=== PATIENT | male | born 1960 | race Caucasian/White ===

== ENCOUNTER → 2017-08-16 | Outpatient (CLI) | payer BC ==
[~2017-08-16] MED LIST: CETICHW4 PO; IBUP-1050 PO; TRIA1SPR2 NAE
--- NOTE | 2017-08-16 09:53 | DIAGNOSTIC IMAGING REPORT ---
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 No history of trauma. The patient has reportedly had this his entire life. FINDINGS: 4 views of the calvarium are obtained. No prior studies are available for comparison at the time of dictation. The skeletal structures are well mineralized. No calvarial fracture is seen. No bony abnormality is identified. The zygomatic arches are preserved. The paranasal sinuses and mastoid air cells are clear as visualized. IMPRESSION: Unremarkable radiographic evaluation of the calvarium. Electronically signed by: Luis Ferro M.D. 08/16/2017 9:51 AM Dictated Date/Time: 08/16/2017 9:49 AM
== END | disposition home or self-care (01) ==
LOC: C.RAD 08:34
PROVIDERS: ATTEND Family Medicine
DX: G93.9 Disorder of brain, unspecified (principal)

== ENCOUNTER 2017-10-18 06:31 | Observation (INO) | payer BC ==
[2017-10-17 08:37] VITALS: Ht 189.2 cm; Wt 102.0 kg
--- NOTE | 2017-10-17 13:39 | History and Physical ---
History & Physical Date Oct 17, 2017. Chief Complaint sleep apnea History of Present Illness The patient is a 57 year old male with complaints of sleep apnea, nasal obstruction Additional History Hepatic Disease: No Endocrine Disorder: No Kidney Disease: No Hypertension: Yes Heart Disease: No Bleeding Tendencies: No Infectious Diseases: No Allergies Coded Allergies: NO KNOWN DRUG ALLERGIES (Verified Allergy, Unknown, NKDA, 10/17/17) POLLEN (Verified Allergy, Unknown, HAYFEVER SYMPTOMS, 10/17/17) Home Medications Scheduled Fluticasone Propionate (Nasal) (Flonase Allergy Relief), 2 SPRAY ROHIT PRN Physical Examination Skin: warm/dry, no rash Eyes: normal inspection, EOMI, sclerae normal ENT: normal ENT inspection, pharynx normal Head: normocephalic, atraumatic Neck: supple, no adenopathy, trachea midline Respiratory/Chest: lungs clear, normal breath sounds, no respiratory distress Cardiovascular: regular rate, rhythm, no edema, no murmur Abdomen / GI: normal bowel sounds, non tender Back: normal inspection Extremities: normal inspection, normal range of motion Neurologic/Psych: no motor/sensory deficits, alert, normal reflexes, oriented x 3 Diagnosis sleep apnea, septal deviation Plan of Treatment septoplasty, Celon turbinates, tonsillectomy, uvulopalatopharyngoplasty
[2017-10-18] VITALS (8 sets, daily range): BP systolic 115–168; BP diastolic 71–90; PULSE 64–92; TEMP 36.1–36.9; O2SAT 90–99
[~2017-10-18] VITALS: Ht 189.2 cm; Wt 102.0 kg
[~2017-10-18 06:31] MED LIST changes: +CEFAZOLIN 2000MG IV PUSH 10 ML IV SCH; -CETICHW4 PO; +FLUT0.15 NAE; -IBUP-1050 PO; +LACTATED RINGER'S 1000ML 1,000 ML IV SCH; -TRIA1SPR2 NAE
--- NOTE | 2017-10-18 07:10 | History & Physical Bridge Note ---
H&P Re-Evaluation Bridge Note: I have examined the patient, reviewed the History & Physical and in the interval since the performance of the History & Physical I have noted the following changes of clinical significance: No changes noted
[2017-10-18] MEDS ORDERED: PROPOFOL IV EMULSION 10 MG/ML 20 ML VIAL IV ONE (07:47)
[2017-10-18] MEDS ORDERED: MIDAZOLAM HCL 1 MG/ML 2ML VIAL ONE (07:47)
[2017-10-18] MEDS ORDERED: LIDOCAINE HCL 2% 2 ML VIAL (20MG/ML) ONE (07:47)
[2017-10-18] MEDS ORDERED: SUCCINYLCHOLINE CHLORIDE 20 MG/ML 10 ML VIAL IV ONE (07:47)
[2017-10-18] MEDS ORDERED: FENTANYL CITRATE INJ 50 MCG/1 ML 2 ML VIAL ONE ×3 (07:48→10:50)
[2017-10-18] MEDS ORDERED: ACETAMINOPHEN 1000 MG/100 ML IV IV ONE (08:31)
[2017-10-18] MEDS ORDERED: FLUMAZENIL 0.1 MG/1 ML 10 ML VIAL IV PRN (09:15)
[2017-10-18] MEDS ORDERED: FENTANYL CITRATE INJ 50 MCG/1 ML 2 ML VIAL IV PRN (09:15)
[2017-10-18] MEDS ORDERED: EpHEDrine SULFATE INJ 50 MG/ML AMP IV PRN (09:15)
[2017-10-18] MEDS ORDERED: PROMETHAZINE HCL INJ 12.5 MG in SODIUM CHLORIDE 0.9% 50ML 50 ML IV PRN (09:15)
[2017-10-18] MEDS ORDERED: ATROPINE SULFATE 0.1 MG/ML 5ML SYR IV PRN (09:15)
[2017-10-18] MEDS ORDERED: NALOXONE HCL 0.4 MG/1 ML VIAL/CARP IV PRN (09:15)
[2017-10-18] MEDS ORDERED: ONDANSETRON INJ 2 MG/ML 2 ML VIAL IV PRN ×2 (09:15→11:00)
[2017-10-18] MEDS ORDERED: LABETALOL HCL IV 5 MG/ML 20ML IV PRN (09:15)
[2017-10-18] MEDS ORDERED: EpINEphrine INJ 1MG/ML AMP 1 MG/ML AMP ONE (09:33)
[2017-10-18] MEDS ORDERED: HYDROmorphone INJ 2 MG/ML SYR/VIAL ONE (09:33)
[2017-10-18] MEDS ORDERED: LABETALOL HCL IV 5 MG/ML 20ML IV ONE (09:48)
[2017-10-18] MEDS ORDERED: MUPIROCIN 2% OINT 22 GM TUBE ONE (09:48)
[2017-10-18] MEDS ORDERED: GELATIN SPONGE 12-7MM ONE (09:48)
[2017-10-18] MEDS ORDERED: EpINEphrine INJ 1MG/ML AMP 1 MG/ML AMP TOP ONE (09:53)
[2017-10-18] MEDS ORDERED: BUPIVACAINE/EPINEPHRINE 0.5% MPF 1:200,000 10 ML VIAL INJ ONE (09:53)
[2017-10-18] MEDS ORDERED: NEOSTIGMINE METHYLSULFATE 5 MG/5 ML SYR ONE (09:58)
[2017-10-18] MEDS ORDERED: GLYCOPYRROLATE INJ 0.2 MG/ML VIAL ONE (09:58)
[2017-10-18] MEDS ORDERED: EpHEDrine SULFATE 50MG/5ML SYR ONE (10:08)
[2017-10-18] MEDS ORDERED: HEMADERM ENT APPLICATOR KIT TOP ONE (10:57)
[2017-10-18] MEDS ORDERED: MoRPHine SULFATE 2 MG/ML CARP IV PRN (11:00)
[2017-10-18] MEDS ORDERED: ACETAMINOPHEN/HYDROCODONE ELIX 15 ML/CUP UDP PO PRN (11:00)
[2017-10-18] MEDS ORDERED: MoRPHine SULFATE 4 MG/ML 1 ML CARP\\VIAL IV PRN (11:00)
[2017-10-18] MEDS ORDERED: HydrALAZINE HCL 20 MG/ML VIAL ONE (11:07)
[2017-10-18] MEDS ORDERED: HydrALAZINE HCL 20 MG/ML VIAL IV. STA (11:08)
--- NOTE | 2017-10-18 11:24 | OPERATIVE REPORT ---
DATE OF OPERATION: 10/18/2017 PREOPERATIVE DIAGNOSES: Sleep apnea and septal deviation. POSTOPERATIVE DIAGNOSES: Same. PROCEDURE: Septoplasty with inferior turbinate reduction using radiofrequency volume reduction and tonsillectomy with uvulopalatopharyngoplasty. SURGEON: Dr. Myers. ANESTHESIA: General endotracheal. COMPLICATIONS: None. BLOOD LOSS: 100 mL HISTORY OF PRESENT ILLNESS: A 57-year-old gentleman with significant sleep apnea and inability to tolerate CPAP. He also has nasal obstruction. DESCRIPTION OF PROCEDURE: The patient brought to the operating room and placed in supine position. General endotracheal anesthesia was induced, prepped, draped in usual sterile manner. The nose was decongested using topical Xylocaine with epinephrine, injection of 0.5% Sensorcaine with 1:200,000 strength epinephrine was also used. The left hemitransfixion incision was made and mucoperichondrium was elevated off the left side of septum. Septal cartilage inferiorly from the vomer maxillary crest and a small septal spur projecting to the left was removed using the Ogle dissector. Superior inferior tunnels were elevated and then bilateral posterior tunnels were elevated. There was a large perpendicular plate of the ethmoid spur projecting to the left. This was removed via bilateral posterior tunnel using the [place]-Indira rongeurs, the Ignacia dissector and the Efrain forceps returning the septum to the midline. The septum was closed using continuous mattress suture of 4-0 plain gut. Radiofrequency volume reduction of the inferior turbinates were performed using the Ethertronicson machine creating 5 lesions in each inferior turbinate with the setting at 18. Gelfoam packing and Hemaderm packing was placed in the nose. Attention was turned to the pharynx. The mouth gag was placed. Soft palate was retracted using a red Lugo catheter. The peritonsillar area was injected with 0.5% Sensorcaine with 1:200,000 strength epinephrine. Tonsillectomy was performed using the plasma knife. Hemostasis was controlled using the plasma knife. The uvula was resected of its anterior portion along with a small piece of the soft palate. The flaps were delineated with a V cut into the palatoglossal fold and a flap cut into the palatopharyngeal fold, rotating this flap laterally into the V cut. All the mucosal edges were approximated using interrupted and continuous 2-0 chromic sutures. The uvula was sewn up on itself on to the soft palate. The pharynx was irrigated clean with saline. The patient tolerated the procedure well and was taken to the recovery area in satisfactory condition. I attest to the content of the Intraoperative Record and any orders documented therein. Any exception s are noted below.
--- NOTE | 2017-10-18 11:48 | Anesthesiology Progress Note ---
Anesthesia Post Op Note Date & Time Oct 18, 2017 at 11:47 Vital Signs Pain Intensity: 2 Vital Signs Past 12 Hours Date Time Temp Pulse Resp B/P (MAP) Pulse Ox O2 Delivery O2 Flow Rate FiO2 10/18/17 11:40 61 19 129/79 94 Free Flow/Blowby 6 10/18/17 11:30 36.4 71 14 143/88 96 Free Flow/Blowby 6 10/18/17 11:20 65 10 153/94 98 Mask 10 10/18/17 11:10 65 13 167/96 97 Mask 10 10/18/17 11:00 67 11 161/108 97 Mask 10 10/18/17 10:52 36.1 72 13 160/99 94 Oxymask 10 10/18/17 07:16 36.9 74 18 168/90 (116) 99 Room Air Notes Mental Status: alert / awake / arousable, participated in evaluation Pt Amnestic to Procedure: Yes Nausea / Vomiting: adequately controlled Pain: adequately controlled Airway Patency, RR, SpO2: stable & adequate BP & HR: stable & adequate Hydration State: stable & adequate Anesthetic Complications: no major complications apparent
[2017-10-18] MEDS ORDERED: IV FLUIDS COMPLETED PRN (12:30)
[2017-10-18] MEDS ORDERED: ACETAMINOPHEN IV 1000MG/100ML IV PRN (13:45)
[2017-10-18] MEDS ORDERED: NURSING VERBAL MED ORDER ONE (13:45)
[2017-10-18] MEDS ORDERED: COUGH DROP (SUGAR FREE) LOZ 24 LOZ/1 BOX ONE (14:53)
[2017-10-18] MEDS: DEXAMETHASONE INJ 6 MG in SYRINGE 0 ML IV SCH ×2 (16:27→20:11)
[2017-10-18] MEDS: D5W AND 1/2NSS + 20MEQ KCL 1,000 ML IV SCH (16:27)
[2017-10-18] MEDS: CEFAZOLIN IV 2,000 MG in SYRINGE 0 ML IV SCH ×2 (16:28→23:53)
[2017-10-18] MEDS: ACETAMINOPHEN/HYDROCODONE ELIX 15 ML/CUP UDP PO PRN ×2 (18:48→23:51)
[2017-10-19] MEDS: D5W AND 1/2NSS + 20MEQ KCL 1,000 ML IV SCH ×2 (02:02→08:44)
[2017-10-19] MEDS: DEXAMETHASONE INJ 6 MG in SYRINGE 0 ML IV SCH ×2 (02:03→07:20)
[2017-10-19 03:53] VITALS: BP 110/69; PULSE 90; TEMP 36.7; O2SAT 92
[2017-10-19] MEDS: ACETAMINOPHEN/HYDROCODONE ELIX 15 ML/CUP UDP PO PRN ×2 (05:51→11:20)
[2017-10-19 06:58] VITALS: BP 132/83; PULSE 77; TEMP 36.6; O2SAT 93
[2017-10-19] MEDS: CEFAZOLIN IV 2,000 MG in SYRINGE 0 ML IV SCH (09:18)
[2017-10-19] MEDS ORDERED: NURSING VERBAL MED ORDER ONE (09:30)
[2017-10-19] MEDS ORDERED: HYDR1SOL10 PO (09:36)
--- NOTE | 2017-10-19 09:37 | Discharge Instructions ---
Discharge Instructions Date of Service Oct 19, 2017. Admission Reason for Admission: Sleep Apnea, Septal Deviation Discharge Discharge Diagnosis / Problem: same Discharge Goals Goal(s): Improve function Activity Recommendations Activity Limitations: per Instructions/Follow-up section . Instructions / Follow-Up Instructions / Follow-Up ACTIVITY RECOMMENDATIONS: * During the first few days, activities should be limited. * Stay indoors for several days. * After 48 hours, activity can gradually be increased to normal activity. RETURN TO SCHOOL/WORK: * Return to school or work in one week. * No physical education for two weeks. OVER THE COUNTER MEDICATIONS: * You may use Tylenol * Avoid aspirin or aspirin containing products, e.g. as they may increase bleeding. SPECIAL CARE INSTRUCTIONS: * Avoid coughing or clearing the throat. * Do not use a straw. * A sore throat is expected frequently accompanied by pain radiating to the ears. This is normal. * Expect bad breath until "scabs" are healed. * Notify the doctor if bleeding occurs, vomiting, temperature greater than 101 degrees Fahrenheit. Call or cell phone: . * If bleeding occurs, it is usually in the first 24 hours or after the 5th day. If unable to reach the doctor, go to the nearest Emergency Department. Special Diet: * Fluids are very important and should be encouraged to maintain adequate hydration. * To maintain nutrition, eat soft foods and after 48 hours the consistency of foods can be increased. Examples are jello, soup, pasta, ice cream and mashed foods. FOLLOW UP VISIT: Follow-up visit with Dr. Myers in 2 weeks. Please call to schedule if not already scheduled. Current Hospital Diet Patient's current hospital diet: Regular Diet Discharge Diet Recommended Diet: Regular Diet Diet Texture: Mechanical Soft (ground) Procedures Procedures Performed: Septoplasty, Celon Turbinates, Tonsillectomy, Uvulopalatalpharyngoplasty Pending Studies Studies pending at discharge: no Medical Emergencies . Who to Call and When: Medical Emergencies: If at any time you feel your situation is an emergency, please call 911 immediately. . Non-Emergent Contact Non-Emergency issues call your: Primary Care Provider . "Provider Documentation" section prepared by Malena Myers. . VTE Core Measure Inpt VTE Proph given/why not?: SCD's [place] Drug Monitoring Program Search Results: no issues identified
[2017-10-19] MEDS ORDERED: SODIUM CHLORIDE 0.65% NA SOLN 45 ML (OCEAN) PRN (09:45)
--- NOTE | 2017-10-19 09:47 | DISCHARGE SUMMARY ---
DIAGNOSIS: Septal deviation and sleep apnea. DISCHARGE DIAGNOSIS: Septal deviation and sleep apnea. PROCEDURE: Septoplasty with radiofrequency volume reduction of the turbinates and tonsillectomy with uvulopalatopharyngoplasty. HOSPITAL COURSE: This 57-year-old male with significant sleep apnea was admitted for definitive treatment. He was taken to the operating room on 10/18/2017 where he underwent tonsillectomy with UPPP and also septoplasty with radiofrequency volume reduction of the turbinates. Postoperatively, he had pain and was admitted for observation overnight with monitoring and with IV medication for discomfort. He did well the first postoperative day with no significant bleeding with ability to swallow and eat full liquids. He is being discharged to home with prescription for hydrocodone elixir and also asked to return for followup in my office in 7-10 days. He was given a prescription for hydrocodone elixir.
[2017-10-19 10:11] VITALS: BP 132/83; PULSE 77; TEMP 36.6; O2SAT 93
== END 2017-10-19 12:28 | disposition home or self-care (01) ==
LOC: C.ACU 06:31 → C.MSN 10:59 → ENRESERV 11:38 → C.MSN 23:29
PROVIDERS: ADMIT Otolaryngology; ATTEND Otolaryngology
DX: J34.2 Deviated nasal septum (principal); G47.33 Obstructive sleep apnea (adult) (pediatric); I10 Essential (primary) hypertension; K21.9 Gastro-esophageal reflux disease without esophagitis

== ENCOUNTER 2020-07-10 22:30 | Inpatient (IN) ==
[2020-07-10 23:03] LABS: Basophils # (auto) 0.02 K/uL (0-0.2); Basophils % (auto) 0.2 %; Eosinophils # (auto) 0.01 K/uL (0-0.5); Eosinophils % (auto) 0.1 %; Hematocrit (blood only) 43.8 % (42-52); Hemoglobin 15.5 g/dL (14.0-18.0); Immature Granulocytes # (auto) 0.05 K/uL (0.00-0.02); Immature Granulocytes % (auto) 0.4 %; Lymphocytes % (auto) 6.2 %; Mean Corpuscular Hemoglobin 31.3 pg (25-34); Mean Corpuscular Hgb Conc 35.4 g/dL (32-36); Mean Corpuscular Volume 88.3 fL (80-100); Mean Platelet Volume 9.7 fL (7.4-10.4); Monocytes # (auto) 0.46 K/uL (0.11-0.59); Monocytes % (auto) 3.6 %; Neutrophils # (auto) 11.57 K/uL (1.4-6.5); Neutrophils % (auto) 89.5 %; Platelet Count 288 K/uL (130-400); RDW Standard Deviation 41.4 fL (36.4-46.3); Red Blood Count 4.96 M/uL (4.7-6.1); White Blood Count 12.91 K/uL (4.8-10.8)
[2020-07-10 23:10] LABS: Albumin Level 4.7 gm/dl (3.4-5.0); BUN Creatinine Ratio 13.7 (10-20); Calcium 10.5 mg/dl (8.5-10.1); Est GFR (African American) 52.7; Est GFR (Non-African American) 45.5; Magnesium 1.9 mg/dl (1.8-2.4); Potassium 4.1 mmol/L (3.5-5.1)
--- NOTE | 2020-07-10 23:15 | Emergency Department Note ---
History of Present Illness General Chief complaint: Cardiac Assessment History of Present Illness This 60-year-old presents to the ER complaining of cp Location: Chest Quality: Pressure Severity: Moderate Duration: Today Timing: Started while hiking Context: Symptoms persisted and patient came in Modifying factors: better with rest and aspirin; worse with activity Patient states he was walking down to the stream with his friend and got nauseated, diaphoretic, lightheaded and felt weak. He then sat down and felt slightly better. After a few hours him and his friend decided to go back and he developed chest pain while walking up the hill. His friend left him there to go get help. He took 2 aspirin and felt better. He did throw up a few times. Patient states he works out regularly and has no chest pain with this. No prior heart disease. There is a family history of heart disease. Patient states he feels back to normal now. He currently is on doxycycline for rosacea. Patient denies dyspnea, abdominal pain, fever, chills, flulike illness. Home Medications Home Medications Medication Instructions Recorded Confirmed Type ascorbic acid (vitamin C) [Vitamin 1,500 mg PO DAILY 05/25/20 07/10/20 History C] melatonin 10 mg PO HS 05/25/20 07/10/20 History multivit with min-folic acid 200 mcg PO DAILY 05/25/20 07/10/20 History [Adult One Daily Gummies] doxycycline hyclate 100 mg PO BID 07/10/20 07/10/20 History Allergies Allergy/AdvReac Type Severity Reaction Status Date / Time No Known Drug Allergies Allergy Unknown NKDA Verified 07/10/20 23:43 pollen extracts Allergy Unknown HAYFEVER Verified 07/10/20 23:43 SYMPTOMS Past Med/Surg History Medical History Sleep apnea Surgical History No pertinent past surgical history Social History Smoking Status: Never smoker Preferred Language: Bermudian Feels Safe at Home: Yes Review of Systems A total of 10 systems reviewed and were otherwise negative Physical Exam Vital Signs Vital Signs - 24 hr 07/10/20 22:35 07/10/20 22:40 07/10/20 23:08 Temperature 36.7 C Temperature Source Oral Pulse Rate 70 90 72 Pulse Rate from SpO2 Sensor 72 73 Respiratory Rate 21 20 21 Blood Pressure 172/106 H 172/106 H 151/82 H Blood Pressure Mean 129 128 95 Blood Pressure Position Sitting Pulse Oximetry 99 100 96 Oxygen Delivery Method Room Air Room Air Sepsis Recent Fever Within 48 Hours No Sepsis New/Unexplained Change in Mental Status No Sepsis Action Taken by Nursing No Action Required 07/10/20 23:21 Temperature Temperature Source Pulse Rate Pulse Rate from SpO2 Sensor Respiratory Rate Blood Pressure Blood Pressure Mean Blood Pressure Position Pulse Oximetry 98 Oxygen Delivery Method Room Air Sepsis Recent Fever Within 48 Hours Sepsis New/Unexplained Change in Mental Status Sepsis Action Taken by Nursing VITALS: Vitals are noted on the nurse's note and reviewed by myself. Vital signs stable. GENERAL: Pleasant talkative male, in no acute distress, nondiaphoretic, well- developed well-nourished. SKIN: Capillary reflex less than 2 seconds. HEENT: Normocephalic. PERRLA. EOMI. Nares patent. Mucous membranes moist. Neck is supple without nuchal rigidity. HEART: Regular rate and rhythm LUNGS: Clear to auscultation bilaterally without wheezes, rales or rhonchi. No retractions or accessory muscle use. ABDOMEN: Positive bowel sounds x 4. Normal tympanic percussion. Soft, nontender, without masses or organomegaly. Thompson sign negative. No guarding or rebound tenderness. MUSCULOSKELETAL: No gross musculoskeletal defects. NEURO: Patient was alert and oriented to person place and time. No focal neurological deficits. Critical Care Time Critical Care Time: Yes Total Critical Care Time: 35 I have personally spent 35 minutes of critical care time in the direct management of this patient. This includes bedside care, interpretation of diagnostic studies, and testing, discussion with consultants, patient, and [facility] members, and other required patient management activities. This 35 minutes is in excess of all separately billable procedures. Medical Decision Making Medical Records Attestation: I reviewed the patient's medical records. Home Medications Current Medication List: was personally reviewed by me Laboratory Data Attestation: I reviewed the patient's lab results. Result diagrams: 07/10/20 21:58 07/10/20 21:58 Lab Results 08/30/20 08/30/20 08/30/20 Range/Units 21:58 21:58 22:03 WBC 12.91 H (4.8-10.8) K/uL RBC 4.96 (4.7-6.1) M/uL Hgb 15.5 (14.0-18.0) g/dL Hct 43.8 (42-52) % MCV 88.3 (80-100) fL MCH 31.3 (25-34) pg MCHC 35.4 (32-36) g/dL RDW Std Deviation 41.4 (36.4-46.3) fL RDW Coeff of Yuniel 13.0 (11.5-14.5) % Plt Count 288 (130-400) K/uL MPV 9.7 (7.4-10.4) fL Immature Gran % (Auto) 0.4 % Neut % (Auto) 89.5 % Lymph % (Auto) 6.2 % [place] % (Auto) 3.6 % Eos % (Auto) 0.1 % Baso % (Auto) 0.2 % Neut # (Auto) 11.57 H (1.4-6.5) K/uL Lymph # (Auto) 0.80 L (1.2-3.4) K/uL [place] # (Auto) 0.46 (0.11-0.59) K/uL Eos # (Auto) 0.01 (0-0.5) K/uL Baso # (Auto) 0.02 (0-0.2) K/uL Immature Gran # (Auto) 0.05 H (0.00-0.02) K/uL PT (9.0-12.0) Seconds INR (0.9-1.1) APTT (21.0-31.0) Seconds PTT Ratio Sodium 143 (136-145) mmol/L Potassium 4.1 (3.5-5.1) mmol/L Chloride 107 (98-107) mmol/L Carbon Dioxide 24 (21-32) mmol/L Anion Gap 12.0 H (3-11) BUN 22 H (7-18) mg/dl Creatinine 1.61 H (0.6-1.4) mg/dl Est Cr Clr Drug Dosing 61.0 ml/min Est GFR ( Amer) 52.7 Est GFR (Non-Af Amer) 45.5 BUN/Creatinine Ratio 13.7 (10-20) Glucose 125 H (70-99) mg/dl Calcium 10.5 H (8.5-10.1) mg/dl Magnesium 1.9 (1.8-2.4) mg/dl Total Bilirubin 1.2 H (0.2-1) mg/dl AST 58 H (15-37) U/L ALT 23 (12-78) U/L Alkaline Phosphatase 80 (45-117) U/L Total Creatine Kinase 630 H (39-308) U/L Troponin I 9.000 H* (0-0.045) ng/ml Total Protein 8.2 (6.4-8.2) gm/dl Albumin 4.7 (3.4-5.0) gm/dl Globulin 3.5 (2.5-4.0) gm/dl Albumin/Globulin Ratio 1.3 (0.9-2) Lipase 61 L (73-393) U/L Urine Color Dark Yellow Urine Appearance Clear (Clear) Urine pH 5.0 (4.5-7.5) Ur Specific [place] 1.026 (1.000-1.030) Urine Protein Trace H (Negative) Urine Glucose (UA) Negative (Negative) Urine Ketones 3+ H (Negative) Urine Blood Negative (Negative) Urine Nitrite Negative (Negative) Urine Bilirubin Negative (Negative) Urine Urobilinogen Negative (Negative) Ur Leukocyte Esterase Negative (Negative) Urine WBC (Auto) 1-5 (0-5) /hpf Urine RBC (Auto) 0-4 (0-4) /hpf U Hyaline Cast (Auto) 10-30 H (0-5) /lpf U Epithel Cells (Auto) >30 H (0-5) /lpf Urine Bacteria (Auto) Negative (Negative) Urine Mucus Present A (None Prsent) 07/10/20 Range/Units 23:37 WBC (4.8-10.8) K/uL RBC (4.7-6.1) M/uL Hgb (14.0-18.0) g/dL Hct (42-52) % MCV (80-100) fL MCH (25-34) pg MCHC (32-36) g/dL RDW Std Deviation (36.4-46.3) fL RDW Coeff of Yuniel (11.5-14.5) % Plt Count (130-400) K/uL MPV (7.4-10.4) fL Immature Gran % (Auto) % Neut % (Auto) % Lymph % (Auto) % [place] % (Auto) % Eos % (Auto) % Baso % (Auto) % Neut # (Auto) (1.4-6.5) K/uL Lymph # (Auto) (1.2-3.4) K/uL [place] # (Auto) (0.11-0.59) K/uL Eos # (Auto) (0-0.5) K/uL Baso # (Auto) (0-0.2) K/uL Immature Gran # (Auto) (0.00-0.02) K/uL PT 11.2 (9.0-12.0) Seconds INR 1.1 (0.9-1.1) APTT 27.1 (21.0-31.0) Seconds PTT Ratio 1.0 Sodium (136-145) mmol/L Potassium (3.5-5.1) mmol/L Chloride (98-107) mmol/L Carbon Dioxide (21-32) mmol/L Anion Gap (3-11) BUN (7-18) mg/dl Creatinine (0.6-1.4) mg/dl Est Cr Clr Drug Dosing ml/min Est GFR ( Amer) Est GFR (Non-Af Amer) BUN/Creatinine Ratio (10-20) Glucose (70-99) mg/dl Calcium (8.5-10.1) mg/dl Magnesium (1.8-2.4) mg/dl Total Bilirubin (0.2-1) mg/dl AST (15-37) U/L ALT (12-78) U/L Alkaline Phosphatase (45-117) U/L Total Creatine Kinase (39-308) U/L Troponin I (0-0.045) ng/ml Total Protein (6.4-8.2) gm/dl Albumin (3.4-5.0) gm/dl Globulin (2.5-4.0) gm/dl Albumin/Globulin Ratio (0.9-2) Lipase (73-393) U/L Urine Color Urine Appearance (Clear) Urine pH (4.5-7.5) Ur Specific [place] (1.000-1.030) Urine Protein (Negative) Urine Glucose (UA) (Negative) Urine Ketones (Negative) Urine Blood (Negative) Urine Nitrite (Negative) Urine Bilirubin (Negative) Urine Urobilinogen (Negative) Ur Leukocyte Esterase (Negative) Urine WBC (Auto) (0-5) /hpf Urine RBC (Auto) (0-4) /hpf U Hyaline Cast (Auto) (0-5) /lpf U Epithel Cells (Auto) (0-5) /lpf Urine Bacteria (Auto) (Negative) Urine Mucus (None Prsent) Imaging Data Attestation: I personally reviewed and interpreted this imaging study as follows: Blood Pressure Blood Pressure Findings: Elevated blood pressure Blood Pressure Disposition: elevated BP felt to be situational MDM Narrative Prior records/ancillary studies reviewed. Triage Nursing notes reviewed. Additional history obtained from EMS. The patient's history was concerning for chest pain. Differential diagnosis: Etiologies such as cardiac ischemia, aortic dissection, pulmonary embolism, pneumonia, pneumothorax, musculoskeletal, infections, pericarditis, myocarditis, esophageal rupture, gastrointestinal, as well as others were entertained. Physical examination: As above. ER treatment provided: An order was placed for continuous cardiac monitoring. The monitor shows a rate of 60-100 with a sinus rhythm. Patient was observed On reassessment the patient felt better. Diagnostic interpretation by me: The electrocardiogram Q waves in the inferior leads. Poor baseline. Normal sinus, normal intervals, no acute ST-T wave changes. Impression normal sinus with Q waves in the inferior leads interpreted by myself EKG ordered for chest pain I think arrhythmia is unlikely. EKG shows normal sinus rhythm with no interval abnormalities such as QT prolongation or WPW. There are no findings to suggest Brugada syndrome. Cardiac monitoring in the emergency department reveals no tac hycardic or bradycardic dysrhythmia. Hypertrophic cardiomyopathy was considered but there are no clear historical elements pointing toward this. EKG is not suggestive. The QRS voltage is not extremely large. EKG was repeated as patient had elevated troponin EKG: Normal sinus, normal intervals, occasional PVC, persistent Q waves in the inferior leads. Impression normal sinus rhythm with PVC and Q waves in the inferior leads interpreted by myself. I think arrhythmia is unlikely. EKG shows normal sinus rhythm with no interval abnormalities such as QT prolongation or WPW. There are no findings to suggest Brugada syndrome. Cardiac monitoring in the emergency department reveals no tachycardic or bradycardic dysrhythmia. Hypertrophic cardiomyopathy was considered but there are no clear historical elements pointing toward this. EKG is not suggestive. The QRS voltage is not extremely large The labs revealed elevated troponin Elevated creatinine Imaging studies: Chest x-ray with no acute consolidation, pneumothorax or free air per my interpretation HEART SCORE: Hx: high/mod/low suspicion: 1 ECG: ST depression/nonspecific changes/normal: 1 Age: Greater than 65/45-64/less than 45: 1 Risk factors: (Hypertension, hyperlipidemia, diabetes, coronary disease, tobacco use, cocaine use): 1 Troponin: Greater than 2 times normal limits/1-2 times normal limits/normal: 2 Total: 6 Consultation: A consultation was placed with the hospitalist, Dr. Urrutia. The case was discussed and diagnostics were reviewed. The patient was evaluated in the ER for further treatment. Exam and history seem consistent with NSTEMI. Patient's creatinine is also elevated from baseline. Patient was consented verbally to heparin. Patient is agreement treatment plan of admission. Patient was pain-free throughout his stay in the ER. By the evaluation outlined above emergent etiologies such as aortic dissection, pulmonary embolism, pneumonia, pneumothorax, infections, pericarditis, myocarditis, gastrointestinal, as well as others were deemed relatively unlikely. The pt informed about the findings as listed above. All questions were answered and pleased with the treatment. The chart was completed utilizing [employer] Speech voice recognition software. Grammatical errors, random word insertions, pronoun errors, and incomplete sentences are an occassional consequence of this system due to software limitations, ambient noise, and hardware issues. Any formal questions or concerns about the content, text, or information contained within the body of this dictation should be directly addressed to the physician research assistant professor for clarification. Impression & Plan Acute non-ST elevation myocardial infarction (NSTEMI) Discharge Plan Visit Data Chief Complaint: Cardiac Assessment ED Provider: Arslan Ricks ED Midlevel Provider: Jeanne Reyes Discharge Problem: Acute non-ST elevation myocardial infarction (NSTEMI) Patient Disposition: Admitted As Inpatient Condition: Fair Forms Stand Alone Forms: [facility] Prescriptions Prescriptions: No Action doxycycline hyclate 100 mg capsule 100 mg PO BID RF: 0 ascorbic acid (vitamin C) [Vitamin C] 500 mg Tablet,Chewable 1,500 mg PO DAILY RF: 0 Adult One Daily Gummies 200 mcg Tablet,Chewable 200 mcg PO DAILY RF: 0 melatonin 10 mg Tablet 10 mg PO HS RF: 0 Referrals Referrals: Keith Rivera MD [Primary Care Provider] -
[2020-07-10 23:21] LABS: Albumin Globulin Ratio 1.3 (0.9-2); Bilirubin,Total 1.2 mg/dl (0.2-1); Globulin 3.5 gm/dl (2.5-4.0); Total Protein 8.2 gm/dl (6.4-8.2)
[2020-07-10 23:27] LABS: Appearance Urine Clear (Clear); Bacteria Urine Automated Negative (Negative); Blood Urine Negative (Negative); Color Urine Dark Yellow; Epithelial Cell Urine Auto >30 /lpf (0-5); Glucose Urine UA Negative (Negative); Ketones Urine 3+ (Negative); Leukocyte Esterase Urine Negative (Negative); Nitrite Urine Negative (Negative); Protein Urine Trace (Negative); RBC Urine Automated 0-4 /hpf (0-4); Specific Gravity Urine 1.026 (1.000-1.030); Urobilinogen Urine Negative (Negative)
[2020-07-10 23:41] LABS: Bilirubin Urine Negative (Negative); Ictotest Urine Negative (Negative)
[2020-07-10 23:42] LABS: Mucus Urine Present (None Prsent)
[2020-07-10] MEDS ORDERED: HEPARIN SODIUM/DEXTROSE 25,000 UNITS/500 ML BAG IV SCH (23:45)
[2020-07-10] MEDS ORDERED: SODIUM CHLORIDE 0.9% 1000ML 500 ML IV ONE (23:52)
[2020-07-10 23:55] LABS: INR 1.1 (0.9-1.1); Partial Thromboplastin Time 27.1 Seconds (21.0-31.0); Prothrombin Time 11.2 Seconds (9.0-12.0)
[2020-07-11] MEDS ORDERED: Heparin BOLUS **ED Use Only IV STA (00:29)
--- NOTE | 2020-07-11 01:49 | History & Physical Report ---
Date of Service July 11, 2020 Assessment & Plan (1) Acute non-ST elevation myocardial infarction (NSTEMI): Payam Sanabria is a 60 y/o male relatively healthy who presented with Chest Pain. He was found to be a NSTEMI with initial trop of 9.0. - Trop of 9 is significant, will trend, no chest pain currently. Will continue to trend. - ECG PRN chest pain - Cardiac Monitoring - did have a very small run of Vtach in room that was asymptomatic. - Will give Metoprolol Tartrate 25mg PO to protect against life threatening arrhythmias. - Lipitor 40mg PO started - Cardiology consulted. - Electrolytes WNL, K 4.1, Mag WNL. - Relatively healthy, no significant risk factors, will check for any underlying causes like DM with Hgb A1C and Lipid Panel ordered. He also is very actively physically and exercises every other day with cardio and has not had any chest pain with exercise. - ASA 81mg PO ordered. - Heparin IV was started in the ED and will continue. DVT ppx: On Heparin Code: Full FENGI: NPO, NSS @ 120ml/hr x 1 bag Dipso: Full admit/PCU/tele (2) Rosacea: Will hold Doxycycline for the time being. Education provided on to drink with full glass of water to prevent esophagitis. History of Present Illness Chief Complaint: Chest Pain Primary Care Provider: Keith Rivera MD Mr. Payam Sanabria is a 60 y/o male with past medical hx of Rosacea who presented to [facility] for Chest Pain. He notes that he hiked about 2 miles with about 25 pounds of gear for camping/fishing trip. He states that he was struggling on the walk and generally didn't feel well. He notes that he had onset of chest pain with nausea and numerous bouts of vomiting, diaphoresis, lightheadedness. He states that this was around 2pm. He notes that he was able to get ASA x2 from a passerby around 3:30pm that resolved chest pain. He noted chest pain was located to left side and felt like ache. It did not radiate. He did not have any shortness of breath. He has not had any chest pain since. He notes he had poor PO intake of fluids and felt dehydrated today when he was walking. He also notes he quickly took his Doxycycline around 12:30pm without a full glass of water. He takes this for his rosacea. He notes he had similar episode last month that he was seen at ED with a negative trop. He notes that his friend was able to walk back to get help, EMS arrived and he was able to walk out with them. He notes his vitals were normal taken by EMS in the field. He is a non-smoker, no DM, HTN that resolved with lifestyle modifications, no family hx of early cardiac , dad had a CABG but was older age. He is a non-smoker. He denies any rash outside of rosacea which he notes has worsened on his nose recently. He also is very actively physically and exercises every other day with cardio and has not had any chest pain with exercise. Allergies Allergy/AdvReac Type Severity Reaction Status Date / Time No Known Drug Allergies Allergy Unknown NKDA Verified 07/10/20 23:43 pollen extracts Allergy Unknown HAYFEVER Verified 07/10/20 23:43 SYMPTOMS Home Medications Home Medications Medication Instructions Recorded Confirmed Type ascorbic acid (vitamin C) [Vitamin 1,500 mg PO DAILY 05/25/20 07/10/20 History C] melatonin 10 mg PO HS 05/25/20 07/10/20 History multivit with min-folic acid 200 mcg PO DAILY 05/25/20 07/10/20 History [Adult One Daily Gummies] doxycycline hyclate 100 mg PO BID 07/10/20 07/10/20 History Past Med/Surg History Medical History Sleep apnea Surgical History No pertinent past surgical history Social History Smoking Status: Never smoker Second Hand Exposure: No; Do You Dip or Chew Tobacco: No; Hx Alcohol Use: Yes Alcohol type: beer and other Hx Substance Use: No Preferred Language: Cambodian Communication Ability: Effective Dispensary Clerk Required: No Beliefs That Will Affect Care: None Current Living Situation: Spouse Other Information That Helps Us Care for You: No Feels Safe at Home: Yes Safety Concerns: Feels Safe At This Time Review of Systems Review of Systems: All systems reviewed & are unremarkable except as noted in HPI & below Constitutional: no fever and no chills Eyes: no diplopia and no spots in vision Ear, Nose, Mouth, Throat: no nasal congestion, no nasal obstruction and no epistaxis Respiratory: no cough and no dyspnea Cardiovascular: as per Subjective / HPI; no syncope Gastrointestinal: as per Subjective / HPI; no abdominal pain Genitourinary: no dysuria and no urinary frequency Musculoskeletal: no back pain and no neck pain Integumentary: + acne; no urticaria Neurologic: no localized weakness, no numbness and no syncope Physical Exam Constitutional: WD/WN, vitals as above cooperative and comfortable Eyes: PERRL, conjunctivae normal, anicteric sclerae ENMT: external ear and nose normal, oropharynx normal Neck: normal visual inspection and trachea midline Respiratory: normal respiratory effort, lungs clear to auscultation Cardiovascular: RRR, no murmur, no edema pain not reproducible with palpation Gastrointestinal (Abdomen): Percussion/Palpation: abdomen soft; abdomen nontender, no guarding and abdomen not rigid Musculoskeletal: Head/Neck/Chest: normocephalic and head atraumatic Skin: erythema with closed comedome to nose consistent with Rosacea Results & Data Results & Data ([facility]) Vital Signs (Past 12 Hours) Vital Signs Temp Pulse Resp BP BP Pulse Ox 07/11/20 00:17 151/82 H 07/10/20 23:21 98 07/10/20 23:08 72 21 151/82 H 96 07/10/20 22:40 36.7 C 90 20 172/106 H 100 07/10/20 22:35 70 21 172/106 H 99 Laboratory Results Laboratory Results - last 24 hr 07/10/20 07/10/20 07/10/20 21:58 21:58 22:03 WBC 12.91 H RBC 4.96 Hgb 15.5 Hct 43.8 MCV 88.3 MCH 31.3 MCHC 35.4 RDW Std Deviation 41.4 RDW Coeff of Yuniel 13.0 Plt Count 288 MPV 9.7 Immature Gran % (Auto) 0.4 Neut % (Auto) 89.5 Lymph % (Auto) 6.2 White % (Auto) 3.6 Eos % (Auto) 0.1 Baso % (Auto) 0.2 Neut # (Auto) 11.57 H Lymph # (Auto) 0.80 L White # (Auto) 0.46 Eos # (Auto) 0.01 Baso # (Auto) 0.02 Immature Gran # (Auto) 0.05 H PT INR APTT PTT Ratio Sodium 143 Potassium 4.1 Chloride 107 Carbon Dioxide 24 Anion Gap 12.0 H BUN 22 H Creatinine 1.61 H Est Cr Clr Drug Dosing 61.0 Est GFR ( Amer) 52.7 Est GFR (Non-Af Amer) 45.5 BUN/Creatinine Ratio 13.7 Glucose 125 H Calcium 10.5 H Magnesium 1.9 Total Bilirubin 1.2 H AST 58 H ALT 23 Alkaline Phosphatase 80 Total Creatine Kinase 630 H Troponin I 9.000 H* Total Protein 8.2 Albumin 4.7 Globulin 3.5 Albumin/Globulin Ratio 1.3 Lipase 61 L Urine Color Dark Yellow Urine Appearance Clear Urine pH 5.0 Ur Specific [place] 1.026 Urine Protein Trace H Urine Glucose (UA) Negative Urine Ketones 3+ H Urine Blood Negative Urine Nitrite Negative Urine Bilirubin Negative Urine Urobilinogen Negative Ur Leukocyte Esterase Negative Urine WBC (Auto) 1-5 Urine RBC (Auto) 0-4 U Hyaline Cast (Auto) 10-30 H U Epithel Cells (Auto) >30 H Urine Bacteria (Auto) Negative Urine Mucus Present A 07/10/20 23:37 WBC RBC Hgb Hct MCV MCH MCHC RDW Std Deviation RDW Coeff of Yuniel Plt Count MPV Immature Gran % (Auto) Neut % (Auto) Lymph % (Auto) White % (Auto) Eos % (Auto) Baso % (Auto) Neut # (Auto) Lymph # (Auto) White # (Auto) Eos # (Auto) Baso # (Auto) Immature Gran # (Auto) PT 11.2 INR 1.1 APTT 27.1 PTT Ratio 1.0 Sodium Potassium Chloride Carbon Dioxide Anion Gap BUN Creatinine Est Cr Clr Drug Dosing Est GFR ( Amer) Est GFR (Non-Af Amer) BUN/Creatinine Ratio Glucose Calcium Magnesium Total Bilirubin AST ALT Alkaline Phosphatase Total Creatine Kinase Troponin I Total Protein Albumin Globulin Albumin/Globulin Ratio Lipase Urine Color Urine Appearance Urine pH Ur Specific [place] Urine Protein Urine Glucose (UA) Urine Ketones Urine Blood Urine Nitrite Urine Bilirubin Urine Urobilinogen Ur Leukocyte Esterase Urine WBC (Auto) Urine RBC (Auto) U Hyaline Cast (Auto) U Epithel Cells (Auto) Urine Bacteria (Auto) Urine Mucus Medications Administered Heparin Sodium/Dextrose (Heparin Sodium/Dextrose) 25,000 units in 500 mls @ 32 mls/hr IV .[id number] [facility]; Protocol Stop: 08/09/20 23:44 Last Admin: 07/11/20 00:35 Dose: 1,600 units/hr, 32 mls/hr Documented by: [id number] Cosigned by: [id number] Supervising Physician Co-Signing Physician Notes Patient seen and examined, chart reviewed, case discussed with Dr. Hanley and I agree with his assessment and plan as documented above. Briefly, patient is 5 tomorrow male presented with an NSTEMI On physical exam he is afebrile, hemodynamically stable, no acute distress Skinwarm, dry, intact, no rashes or lesions HEENTnormocephalic/atraumatic, pupils equal and reactive to light, mucous membranes, neck supple Heart+ S1, S2, regular, no murmur/rub/gallops Lungsclear to auscultation Abdomen+ bowel sounds, soft, nontender/nondistended Extremitieswarm, well-perfused, 2+ pulses, no edema Labs and images reviewed Assessment/plan: Admit to PCU Continue aspirin, statin, heparin drip Trend troponins 2D echo in the morning Cardiology consultation appreciated. Patient will be kept n.p.o. for possible catheterization Resident Activity Tracking Resident Involvement: Resident Care Provided Care Provided: Adult Hospital Medicine
[2020-07-11] MEDS ORDERED: SODIUM CHLORIDE 0.9% 1000ML 1,000 ML IV SCH ×2 (03:06→16:45)
[2020-07-11] MEDS ORDERED: NITROGLYCERIN SL 0.4 MG/TAB TAB SL PRN (03:06)
[2020-07-11] MEDS ORDERED: ONDANSETRON INJ 2 MG/ML 2 ML VIAL IV PRN (03:06)
[2020-07-11] MEDS ORDERED: METOPROLOL TARTRATE 25 MG TAB PO ONE (03:06)
[2020-07-11] MEDS ORDERED: ACETAMINOPHEN 325 MG TAB PO PRN (03:06)
[2020-07-11] MEDS: ATORVASTATIN 40 MG TAB PO SCH ×2 (03:47→19:50)
[2020-07-11] MEDS: ASPIRIN 81 MG ECTAB PO SCH ×2 (03:47→09:42)
[2020-07-11 04:52] LABS: Troponin I 42.7 ng/ml (0-0.045)
[2020-07-11] MEDS ORDERED: NITROGLYCERIN 2% OINTMENT 30GM TUBE EXT STA (05:43)
[2020-07-11] MEDS: FAMOTIDINE 20 MG in SYRINGE 3 ML IV ONE ×2 (06:15→09:41)
--- NOTE | 2020-07-11 06:40 | Billing Data ---
Date of Service July 11, 2020 Coding Level of Care Code 56206 Initial Inpt Care Lvl 2
[2020-07-11 07:06] LABS: Partial Thromboplastin Ratio 4.1
[2020-07-11 07:07] LABS: Partial Thromboplastin Time 115.6 Seconds (21.0-31.0)
[2020-07-11 07:11] LABS: Estimated Average Glucose 88 mg/dl; Hemoglobin A1C 4.7 % (4.5-5.6)
--- NOTE | 2020-07-11 07:42 | XRay Report ---
XR chest 1V portable CLINICAL HISTORY: Chest Pain COMPARISON STUDY: Chest radiograph May 25, 2020. FINDINGS: Lung volumes are normal. Minimal linear left basilar opacity suggests atelectasis. There is no pneumothorax or pleural effusion. Cardiac size is normal. Mediastinal contours are normal. There is no evidence for pulmonary edema. IMPRESSION: No acute cardiopulmonary findings. ACT 112: Negative or not required by law. Electronically signed by: Hank Garcia M.D. 07/11/2020 7:41 AM
--- NOTE | 2020-07-11 08:57 | XCELERA ---
[id number] \\[id number]
--- NOTE | 2020-07-11 09:02 | Cardiology Consultation ---
Date of Consultation July 11, 2020 Assessment & Plan (1) Acute non-ST elevation myocardial infarction (NSTEMI): (2) Acute renal insufficiency: ASSESSMENT/PLAN: 1. Acute NSTEMI: Presentation consistent with NSTEMI. We discussed the diagnosis. Continue aspirin 81 mg daily. Continue heparin drip. Continue high-intensity statin therapy. Had a dose of beta-rell this morning. If blood pressure and heart rate allow, would recommend metoprolol tartrate 12.5 mg twice daily. Recommend BULL-inhibitor now that creatinine has improved. Recommended cardiac catheterization. Risks and benefits of the procedure were discussed with he and his in detail. They were made aware that CT surgery is not available at this facility. They were agreeable to undergo cardiac catheterization and PCI, if deemed appropriate, at this facility. We also discussed cardiac rehabilitation. 2. Acute renal insufficiency: Likely due to hypovolemia following episodes of vomiting yesterday. Repeat basic metabolic panel was ordered and creatinine has normalized. 3. Disposition: Cardiology will continue to follow. Patient care has been communicated with Dr. Baker of the primary hospitalist service. Cardiac rehabilitation recommended on discharge. Highly complex medical issues. Thank you for allowing me to participate in the care of your patient. Please call for any other questions or concerns. Sincerely, Arya Benavides M.D. History of Present Illness Reason for Consultation: NSTEMI Requesting Physician: Dr. Moustapha Luis Attending Physician: Jose Bakre, History of Present Illness Mr. Sanabria is a pleasant 60-year-old gentleman with a history significant for sleep apnea (s/p surgery) who presented to [facility] on 07/10/2020 after experiencing an episode of chest discomfort earlier that afternoon. On presentation, his troponin was 9, later peaking at 42.7, and he was admitted to the hospitalist service. Cardiology was consulted to help assist in his care. Approximately 6 weeks ago, he had an episode of chest discomfort radiating to his left arm with nausea after exercise the. He was seen in the emergency department and later discharged home. He felt well in this regard until yesterday. He did a 2 mi hike down to a stream where he was planning on fishing for [employer]. He developed nausea, left-sided chest pressure, diaphoresis, and vomiting. He states that he was soaking wet from sweat. This first started shortly after 3:30 p.m. and lasted approximately 1 hour. His friend went to get EMS on foot. He then had another episode at rest lasting approximately 15 minutes, subsiding after aspirin 81 mg x 2. EMS arrived approximately 45 minutes later and recommended removal by helicopter however he chose to walk back to the road. He did so slowly and took several rests and did not have any further chest discomfort. While here, he received metoprolol and heparin drip. Overnight and early this morning, he did have 2 episodes of recurrent chest discomfort that resolved with nitroglycerin. These episodes were not nearly as severe as his initial presentation. He is currently chest pain-free. He denies syncope, near-syncope, shortness of breath, palpitations, edema, or bleeding such as melena, hematochezia, or h ematuria. He has not been diagnosed with dyslipidemia or diabetes. He had elevated blood pressure in the past but this normalized after exercising and losing weight. He exercises regularly at [employer] and enjoys riding bicycle. Review of systems: As above. Review of systems otherwise negative/unremarkable. Family history: Father diagnosed with CAD near the age of 71 and underwent PCI and CABG. Mother had VT in her 80s. Social history: Denies tobacco or drug abuse. Occasional alcohol. Lives at home with his , Jenna. They have a son and a daughter. Grandchildren. 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 His is present at the bedside. Allergies Allergy/AdvReac Type Severity Reaction Status Date / Time No Known Drug Allergies Allergy Unknown NKDA Verified 07/10/20 23:43 pollen extracts Allergy Unknown HAYFEVER Verified 07/10/20 23:43 SYMPTOMS Home Medications Home Medications Medication Instructions Recorded Confirmed Type ascorbic acid (vitamin C) [Vitamin 1,500 mg PO DAILY 05/25/20 07/10/20 History C] melatonin 10 mg PO HS 05/25/20 07/10/20 History multivit with min-folic acid 200 mcg PO DAILY 05/25/20 07/10/20 History [Adult One Daily Gummies] doxycycline hyclate 100 mg PO BID 07/10/20 07/10/20 History Patient History Medical History Sleep apnea Surgical History No pertinent past surgical history Social History Smoking Status: Never smoker Second Hand Exposure: No; Do You Dip or Chew Tobacco: No; Hx Alcohol Use: Yes Alcohol type: beer and other Hx Substance Use: No Preferred Language: Dutch Communication Ability: Effective 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 Alert and oriented. HEENT: Anicteric sclera. Neck: No JVD. No bruits. Normal carotid upstrokes bilaterally. Cardiac: PMI was nondisplaced. No ventricular heave. Regular. Normal S1-S2. No murmurs, rubs, or gallops. Pulmonary: Clear to auscultation bilaterally without wheezes, rales, or rhonchi. Abdomen: Soft, nontender, nondistended, with normoactive bowel sounds. No bruits noted. Extremities: 2+ radial pulses bilaterally. 2+ posterior tibialis pulses bilaterally. No edema or cyanosis. No palpable cords. Psychiatric: Affect appears appropriate. Results & Data ([facility]) Vital Signs (Past 12 Hours) Vital Signs Temp Pulse Pulse Resp BP BP Pulse Ox 07/11/20 07:21 36.8 C 58 L 17 117/73 96 07/11/20 05:37 53 L 124/74 07/11/20 04:16 85 07/11/20 03:16 36.8 C 74 18 152/88 H 95 07/11/20 02:51 86 18 151/82 H 96 07/11/20 00:17 151/82 H 07/10/20 23:21 98 07/10/20 23:08 72 21 151/82 H 96 07/10/20 22:40 36.7 C 90 20 172/106 H 100 07/10/20 22:35 70 21 172/106 H 99 Laboratory Results Laboratory Results - last 24 hr 07/10/20 07/10/20 07/10/20 21:58 21:58 22:03 WBC 12.91 H RBC 4.96 Hgb 15.5 Hct 43.8 MCV 88.3 MCH 31.3 MCHC 35.4 RDW Std Deviation 41.4 RDW Coeff of Yuniel 13.0 Plt Count 288 MPV 9.7 Immature Gran % (Auto) 0.4 Neut % (Auto) 89.5 Lymph % (Auto) 6.2 [place] % (Auto) 3.6 Eos % (Auto) 0.1 Baso % (Auto) 0.2 Neut # (Auto) 11.57 H Lymph # (Auto) 0.80 L [place] # (Auto) 0.46 Eos # (Auto) 0.01 Baso # (Auto) 0.02 Immature Gran # (Auto) 0.05 H PT INR APTT PTT Ratio Sodium 143 Potassium 4.1 Chloride 107 Carbon Dioxide 24 Anion Gap 12.0 H BUN 22 H Creatinine 1.61 H Est Cr Clr Drug Dosing 61.0 Est GFR ( Amer) 52.7 Est GFR (Non-Af Amer) 45.5 BUN/Creatinine Ratio 13.7 Glucose 125 H Estimat Average Glucose Hemoglobin A1c Calcium 10.5 H Magnesium 1.9 Total Bilirubin 1.2 H AST 58 H ALT 23 Alkaline Phosphatase 80 Total Creatine Kinase 630 H Troponin I 9.000 H* Total Protein 8.2 Albumin 4.7 Globulin 3.5 Albumin/Globulin Ratio 1.3 Triglycerides Cholesterol LDL Cholesterol, Calc VLDL Cholesterol, Calc HDL Cholesterol Cholesterol/HDL Ratio Lipase 61 L Urine Color Dark Yellow Urine Appearance Clear Urine pH 5.0 Ur Specific [place] 1.026 Urine Protein Trace H Urine Glucose (UA) Negative Urine Ketones 3+ H Urine Blood Negative Urine Nitrite Negative Urine Bilirubin Negative Urine Urobilinogen Negative Ur Leukocyte Esterase Negative Urine WBC (Auto) 1-5 Urine RBC (Auto) 0-4 U Hyaline Cast (Auto) 10-30 H U Epithel Cells (Auto) >30 H Urine Bacteria (Auto) Negative Urine Mucus Present A 07/10/20 07/11/20 07/11/20 23:37 03:58 03:58 WBC RBC Hgb Hct MCV MCH MCHC RDW Std Deviation RDW Coeff of Yuniel Plt Count MPV Immature Gran % (Auto) Neut % (Auto) Lymph % (Auto) [place] % (Auto) Eos % (Auto) Baso % (Auto) Neut # (Auto) Lymph # (Auto) [place] # (Auto) Eos # (Auto) Baso # (Auto) Immature Gran # (Auto) PT 11.2 INR 1.1 APTT 27.1 PTT Ratio 1.0 Sodium Potassium Chloride Carbon Dioxide Anion Gap BUN Creatinine Est Cr Clr Drug Dosing Est GFR ( Amer) Est GFR (Non-Af Amer) BUN/Creatinine Ratio Glucose Estimat Average Glucose 88 Hemoglobin A1c 4.7 Calcium Magnesium Total Bilirubin AST ALT Alkaline Phosphatase Total Creatine Kinase 1419 H Troponin I 42.700 H* Total Protein Albumin Globulin Albumin/Globulin Ratio Triglycerides 65 Cholesterol 171 LDL Cholesterol, Calc 105 VLDL Cholesterol, Calc 13 HDL Cholesterol 53 Cholesterol/HDL Ratio 3 Lipase Urine Color Urine Appearance Urine pH Ur Specific [place] Urine Protein Urine Glucose (UA) Urine Ketones Urine Blood Urine Nitrite Urine Bilirubin Urine Urobilinogen Ur Leukocyte Esterase Urine WBC (Auto) Urine RBC (Auto) U Hyaline Cast (Auto) U Epithel Cells (Auto) Urine Bacteria (Auto) Urine Mucus 07/11/20 07/11/20 06:24 06:24 WBC RBC Hgb Hct MCV MCH MCHC RDW Std Deviation RDW Coeff of Yuniel Plt Count MPV Immature Gran % (Auto) Neut % (Auto) Lymph % (Auto) [place] % (Auto) Eos % (Auto) Baso % (Auto) Neut # (Auto) Lymph # (Auto) [place] # (Auto) Eos # (Auto) Baso # (Auto) Immature Gran # (Auto) PT INR APTT 115.6 H* PTT Ratio 4.1 Sodium Potassium Chloride Carbon Dioxide Anion Gap BUN Creatinine Est Cr Clr Drug Dosing Est GFR ( Amer) Est GFR (Non-Af Amer) BUN/Creatinine Ratio Glucose Estimat Average Glucose Hemoglobin A1c Calcium Magnesium Total Bilirubin AST ALT Alkaline Phosphatase Total Creatine Kinase Troponin I 39.600 H* Total Protein Albumin Globulin Albumin/Globulin Ratio Triglycerides Cholesterol LDL Cholesterol, Calc VLDL Cholesterol, Calc HDL Cholesterol Cholesterol/HDL Ratio Lipase Urine Color Urine Appearance Urine pH Ur Specific [place] Urine Protein Urine Glucose (UA) Urine Ketones Urine Blood Urine Nitrite Urine Bilirubin Urine Urobilinogen Ur Leukocyte Esterase Urine WBC (Auto) Urine RBC (Auto) U Hyaline Cast (Auto) U Epithel Cells (Auto) Urine Bacteria (Auto) Urine Mucus Diagnostic Findings ECGs personally reviewed: ECG 07/10/2020 at 11:24 p.m.: Sinus rhythm with PVCs at 69 beats per minute. Inferior infarct. ECG 07/10/2020 at 10:37 p.m.: Sinus rhythm 67 beats per minute. Possible inferior infarct. ECG 07/11/2020 at 5:22 a.m.: Sinus bradycardia 55 beats per minute. Inferior infarct. Echo 07/11/2020: Normal LV size, systolic function. EF 55-60%. Severe hypokinesis to akinesis of the mid inferolateral wall. Mild hypokinesis of the mid to distal inferior wall. Mild LVH. Mild left atrial dilation. No significant valvular abnormalities. Normal RVSP. Chest x-ray 07/10/2020: No acute abnormality. Telemetry personally reviewed: No arrhythmia. Sinus rhythm. Medications Administered Current Inpatient Medications Acetaminophen (Acetaminophen 325 Mg Tab) 650 mg PO Q4H PRN PRN Reason: Pain or Fever Stop: 08/10/20 03:05 Aspirin (Aspirin 81 Mg Ectab) 81 mg PO QAM [facility] Stop: 08/10/20 03:05 Last Admin: 07/11/20 03:47 Dose: 81 mg Documented by: Atorvastatin Calcium (Atorvastatin 40 Mg Tab) 40 mg PO HS [facility] Stop: 08/10/20 03:05 Last Admin: 07/11/20 03:47 Dose: 40 mg Documented by: Heparin Sodium/Dextrose (Heparin Sodium/Dextrose) 25,000 units in 500 mls @ 32 mls/hr IV .[id number] [facility]; Protocol Stop: 08/09/20 23:44 Last Titration: 07/11/20 08:12 Dose: 1,350 units/hr, 27 mls/hr Documented by: Sodium Chloride (Nss 1000ml) 1,000 mls @ 120 mls/hr IV .[id number] [facility] Stop: 07/11/20 11:25 Last Admin: 07/11/20 03:58 Dose: 120 mls/hr Documented by: Nitroglycerin (Nitroglycerin Sl 0.4 Mg/Tab Tab) 0.4 mg SL UD PRN PRN Reason: Chest Pain Stop: 08/10/20 03:05 Last Admin: 07/11/20 04:43 Dose: 0.4 mg Documented by: Ondansetron HCl (Ondansetron Inj 2 Mg/Ml 2 Ml Vial) 4 mg IV Q6H PRN PRN Reason: Nausea Stop: 08/10/20 03:05 PG Care Time/CCT Total # of Minutes Spent Total Time Spent with Patient: Total time spent is greater than 50% in coordination of care (as documented) at patient's floor/unit and/or counseling patient: Coding Level of Care Code 28787 Inpt Consult Level 5 Diagnoses Acute non-ST elevation myocardial infarction (NSTEMI) I21.4 Acute renal insufficiency N28.9
[2020-07-11 10:20] LABS: BUN Creatinine Ratio 16.1 (10-20); Calcium 9.2 mg/dl (8.5-10.1); Creatinine Clr Calc Pharmacy 75.8 ml/min; Est GFR (Non-African American) 65.5; Potassium 3.4 mmol/L (3.5-5.1)
--- NOTE | 2020-07-11 12:24 | Pre Anesthesia Assessment ---
Date of Service July 11, 2020 Pre Sedation Assessment Vital Signs Temp Pulse Pulse Resp BP BP Pulse Ox 07/11/20 11:54 36.6 C 59 L 18 115/68 97 07/11/20 07:21 36.8 C 58 L 17 117/73 96 07/11/20 05:37 53 L 124/74 07/11/20 04:16 85 07/11/20 03:16 36.8 C 74 18 152/88 H 95 07/11/20 02:51 86 18 151/82 H 96 07/11/20 00:17 151/82 H 07/10/20 23:21 98 07/10/20 23:08 72 21 151/82 H 96 07/10/20 22:40 36.7 C 90 20 172/106 H 100 07/10/20 22:35 70 21 172/106 H 99 Cardiovascular RRR, no murmur, no edema Respiratory normal respiratory effort, lungs clear to auscultation Pre-Sedation Airway Assessment Smoking Status: Never smoker Mallampati Class: I ASA: ASA3 NPO Status Date of Last Intake of Fluids: 07/10/20 Time of Last Intake of Fluids: 22:00 Date of Last Intake of Solid Food: 07/10/20 Time of Last Intake of Solid Foods: 09:30 Procedure Planning Contraindications for Sedation: none Current Medications Reviewed: Yes Notes The planned sedation has been discussed with the patient. Informed Consent was obtained. I have identified the patient, determined the appropriateness of sedation and have assessed the patient immediately prior to the procedure. All medicine(s) and interventions are by my order.
[2020-07-11] MEDS ORDERED: NiCARDipine HCL INJ 2.5 MG/ML 10 ML AMP ONE (12:45)
[2020-07-11] MEDS ORDERED: NITROGLYCERIN/D5W 100MCG/ML 20ML SYR ONE (12:45)
[2020-07-11] MEDS ORDERED: MIDAZOLAM HCL 1 MG/ML 2ML VIAL ONE ×3 (12:45→14:12)
[2020-07-11] MEDS ORDERED: fentaNYL citrate 100 MCG/2 ML VIAL ONE ×2 (12:45→14:13)
[2020-07-11] MEDS ORDERED: HEPARIN (PORCINE) 1000 UNIT/ML 10 ML (CATH LAB USE ONLY) ONE ×2 (12:45→14:21)
--- NOTE | 2020-07-11 13:46 | Cardiac Catheterization ---
[facility] Data: Stoper Cardiac Status Clinical evaluation leading to the procedure CAD Presenation: Non STEMI Anginal Classification: CCS IV Heart Failure: No Cardiogenic Shock within 24 Hours: No Cardiac Arrest within 24 Hours: No Imaging Studies Past 6 Months: Yes Stress Studies Past 6 Months: No Standard Exercise Test: No Stress Echocardiogram: No Stress Testing w/SPECT MPI: No Cardiac CTA: No Coronary Anatomy Dominant: Right Left Ventricular Angiography EF (%): n/a Diagnostic Physicians Name: Jose Benavides MD Status: Elective Closure Device Percutaneous Entry Location: Radial Closure Device: Radial Band Recommendations: PCI without planned CABG Cardiac Cath Procedure Full Procedure Date July 11, 2020 Pre-Procedure Diagnosis Pre-Procedure Diagnosis: Non STEMI AUC Score AUC Score: 8 Post-Procedure Diagnosis Post-Procedure Diagnosis: Severe CAD and Normal Intracardiac Pressures Procedure(s) Performed Procedure(s) Performed: Coronary Angiography and Left Heart Cath Barbecue Cook Jose Benavides MD Spray I Painter(s) Kyung Estimated Blood Loss Estimated Blood Loss: < 25 ml Medication(s) Medication(s): Fentanyl, Heparin, Lidocaine 1%, Nicardipine and Versed Summary of Findings Procedures: 1. Coronary angiography 2. Left heart catheterization 3. Moderate sedation Coronary angiography: 1. Left main coronary artery: The LMCA is a large caliber vessel. No significant CAD. 2. Left anterior descending: The LAD is a large-caliber vessel. Proximal LAD diffuse 70% stenosis. Small D1 and D2. BEAR-3 flow throughout. 3. Circumflex: The circumflex is a large-caliber vessel. Ostial circumflex 30%. Mid circumflex 30%. Large caliber high OM1 with proximal 40%. Small OM 2. Large OM 3. 4. Right coronary artery: The RCA is large and dominant. Proximal RCA 30%. Mid RCA 80% with probable thrombus. Large PDA and PL branch. PL mid 20%. BEAR-3 flow throughout. Left heart catheterization: 1. Left ventriculography was not performed. 2. Normal LVEDP; 11 mmHg. 3. No aortic stenosis. Peak to peak gradient across aortic valve was 0 mmHg. Moderate sedation: 1. Sedation start time: 12:56 PM 2. Sedation end time: 1:26 PM Impression: 1. Severe CAD involving mid RCA (culprit vessel) with probable thrombus. 2. Severe CAD diffusely within the proximal LAD. 3. Otherwise, mild to moderate nonobstructive CAD. 4. Normal left-sided filling pressure. 5. No aortic stenosis. Plan: 1. Imaging reviewed with Dr. Maharaj of interventional cardiology. 2. PCI of RCA with consideration of IVUS/PCI of LAD. 3. Risk factor modification/optimize medical therapy. 4. Cardiac rehab. Hemodynamics Rest Ao:: 107/53 Final Ao: 99/53 LV: 113/0/11 Recommendations Recommendations: PCI without planned CABG Specimens Specimens: None Radiation Exposure (mGy) 1121 mGy. Fluoro time 3.9 min. Contrast (mls) 90 ml Procedural Complication(s) None Disposition remains in garden labourer for PCI I attest to the content of the Intraoperative Record and any orders documented therein. Any exceptions are noted below. [facility] Card Cath Procedure Codes Cardiac Catheterization Procedure 1: Cardiovascular Cath Procedures: 68245 Coronaries and LHC (+/-LV) Moderate Sedation Procedure 1: Sedation/Anesthesia: 60005 Mod Sedation by the same physician;Init15 Min Child Age 5 & Up Procedure 2: Sedation/Anesthesia: 38738 Mod Sedation by the same physician; Ea [id number] Minutes PG Care Time/CCT Total # of Minutes Spent Total Time Spent with Patient: Total time spent is greater than 50% in coordination of care (as documented) at patient's floor/unit and/or counseling patient:
[2020-07-11] MEDS ORDERED: TICAGRELOR 90 MG TAB PO ONE (14:51)
--- NOTE | 2020-07-11 15:02 | Post Anesthesia Assessment ---
Date of Service July 11, 2020 Post Sedation Assessment Vital Signs Temp Pulse Pulse Resp BP BP Pulse Ox 07/11/20 12:25 60 18 146/78 H 98 07/11/20 11:54 97.9 F 59 L 18 115/68 97 07/11/20 07:21 98.2 F 58 L 17 117/73 96 07/11/20 05:37 53 L 124/74 07/11/20 04:16 85 07/11/20 03:16 98.2 F 74 18 152/88 H 95 07/11/20 02:51 86 18 151/82 H 96 07/11/20 00:17 151/82 H 07/10/20 23:21 98 07/10/20 23:08 72 21 151/82 H 96 07/10/20 22:40 98.1 F 90 20 172/106 H 100 07/10/20 22:35 70 21 172/106 H 99 Recovery Score Activity: Moves 4 extremities Respiration: Deep Breath/Cough Circulation: +/-20% PreAnes Value Consciousness: Fully Awake Oxygen Saturation: O2 needed for >90% Discharge Sedation Level of Care: Fast Track Phase II Post Sedation Plan On clinical assessment, the patient appears to have tolerated the sedation without complications. Patient is recovering as anticipated. Patient will continue to be monitored by nursing and may be discharged when sedation discharge criteria are met per below protocol. Upon Completions of procedure up to 15 minutes continue every 5 minute vital signs and the P.A.R. score; then discharge to a Phase I or Fast Track to Phase II per the following guidelines: * Discharge Patient to appropriate Phase II area if PAR is 8 or greater or return to pre- procedure baseline. The post - procedure orders will be as directed. * If PAR score is less than 8 or not return to pre-procedure baseline then patient will follow Phase I monitoring till PAR is reached for Phase II. The Phase I may be done in procedure room or may call to secure a Phase I area. * If naloxone or flumazenil are used for reversal, hold in Phase I for continued monitoring from when last reversal dose was given for a minimum of 60 minutes or longer pending the nurse and/or physician discretion of patient condition before discharge to Phase II. Please call the Sedation Physician to re-evaluate and complete post-note for discharge to Phase II area. Do NOT discharge from procedure sedation or Phase 1 until post- sedation evaluation note is complete by procedure /sedation MD Sedation Discharge Instructions to be given to the patient at discharge to home.
--- NOTE | 2020-07-11 15:27 | Cardiac Catheterization ---
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 Car Operator Cardiac Status Clinical evaluation leading to the procedure CAD Presenation: Non STEMI Anginal Classification: CCS IV Heart Failure: No Cardiogenic Shock within 24 Hours: No Cardiac Arrest within 24 Hours: No Imaging Studies Past 6 Months: Yes Stress Studies Past 6 Months: No Diagnostic Physicians Name: Mahamed Maharaj MD Status: Elective Closure Device Percutaneous Entry Location: Radial Closure Device: Radial Band Recommendations: PCI without planned CABG PCI Indication: PCI for high risk Non-CHAN Lesion Segment Name: mid RCA Culprit Artery: Yes Stenosis Prior to Rx (%): 80 Chronic Total Occlusion: No IVUS: Yes FFR: No Pre-Procedure BEAR Flow: 3 Previously Treated Lesion: No Lesion Complexity: Non-High/Non-C Lesion Length (mm): 20 Thrombus Present: Yes Bifurcation Lesion: No Guidewire Across Lesion: Stenosis Post-Procedure (%): 0 Post-Procedure BEAR Flow: 3 Devices(s) Deployed: Yes Yes Lesion #2 Segment Name: proximal LAD Culprit Artery: No Stenosis Prior to Rx (%): 70 Chronic Total Occlusion: No IVUS: Yes FFR: No Pre-Procedure BEAR Flow: 3 Previously Treated Lesion: No Lesion Complexity: Non-High/Non-C Lesion Length (mm): 30 Thrombus Present: No Bifurcation Lesion: Yes Guidewire Across Lesion: Yes Stenosis Post-Procedure (%): 0 Post-Procedure BEAR Flow: 3 Devices(s) Deployed: Yes Intraprocedure Events Significant Disection: No Perforation: No Cardiac Cath Procedure Full Procedure Date July 11, 2020 Pre-Procedure Diagnosis Pre-Procedure Diagnosis: Non STEMI AUC Score AUC Score: 8 Post-Procedure Diagnosis Post-Procedure Diagnosis: Severe CAD and Successful PCI Procedure(s) Performed Procedure(s) Performed: Coronary Angiography, Drug Eluting Stent and Ultrasound Guided Vascular Access Development Consultant Mahamed Maharaj MD Claims Adjuster Supervisor(s) Kyung Estimated Blood Loss Estimated Blood Loss: < 25 ml Medication(s) Medication(s): Clopidogrel, Fentanyl, Heparin, Nicardipine, Nitroglycerin and Versed Summary of Findings Indication: High risk NSTEMI Access: 6 Fr slender right radial artery Findings: For full details of patient's coronary angiography please see cath report dictated by Dr. Benavides. Briefly, patient found to have severe multi-vessel disease including a 80% stenosis involving the mid RCA and diffuse proximal to mid LAD disease. Decision to proceed with PCI. -- PCI -- Antithrombotic therapy: Heparin, ticagrelor Procedure: RCA cannulated with JR4 guide Controller Mechanic 50 wire passed across lesion into distal vessel IVUS used to assess extent of disease, for vessel sizing. Noted to have mildly calcified diffuse disease involving the mid segment with probable thrombus. Measured stenosis of 83% with minimal luminal area of 2.9 mm. Dilated mid RCA lesion stented with 4.0 x 28 mm Xience Airam drug-eluting stent Stent post-dilated with 4.5 noncompliant balloon Repeat IVUS showed well apposed, well-expanded stent IC vasodilators administered for spasm Post procedure BEAR 3 flow, stent well expanded with minimal residual stenosis and no apparent cardiac complications. Left main cannulated with EBU 3.5 guide Controller Mechanic 50 wire placed into distal LAD IVUS of LAD revealed severe diffuse, moderately calcified disease extending from ostium to mid segment (calculated stenosis 79%, MLA 3.0 mm). BMW wire placed into high OM1 Proximal to mid LAD dilated with 3.0 compliant balloon Ostial to mid LAD stented with 3.5 x 33 mm Xience Airam drug-eluting stent Stent postdilated with 4.0 NC balloon Repeat IVUS showed well apposed, well-expanded stent. No evidence of edge com plications. IC vasodilators administered for spasm Post procedure BEAR 3 flow, stent well expanded with minimal residual stenosis and no apparent cardiac complications. Arterial Closure: TR band Summary: 1. Successful PCI of mid RCA with single drug-eluting stent (4.0 x 28 mm Xience Airam; postdilated with 4.5 NC). 2. Successful PCI of ostial to mid LAD with single drug-eluting stent (3.5 x 33 mm Xience Airam; postdilated with 4.0 NC). Recommendations: To PCU for continued monitoring Loaded with ticagrelor 180 mg in Transfer Car Operator Continue dual-antiplatelet therapy for at least 1 year Continue statin, and ASCVD risk factor modification Consult cardiac Rehab Hemodynamics Rest Ao:: 99/53/75 Final Ao: 124/66/92 LV: -- Recommendations Recommendations: PCI without planned CABG Specimens Specimens: None Radiation Exposure (mGy) 3802 Contrast (mls) 180 Fluids (cc crystalloids) Fluids (cc crystalloids): 140 Drains Drains: none Anesthesia moderate Procedural Complication(s) None Disposition PCU I attest to the content of the Intraoperative Record and any orders documented therein. Any exceptions are noted below. [facility] Card Cath Procedure Codes Therapeutic Services & Ancillary Proc Procedure 1: Cardiovascular Tx and Anc Procedures: 93879 IV Ultrasound (Coronary or Graft) Procedure 2: Cardiovascular Tx and Anc Procedures: 76221 IV Ultrasound Ea addl vessel Moderate Sedation Procedure 1: Sedation/Anesthesia: 38412 Mod Sedation by the same physician; Ea [id number] Minutes Stenting Procedure 1: Cardiovascular Stent Procedures: 98424 Perc transcatheter placement of intracoronary stent(s), with ang Procedure 2: Cardiovascular Stent Procedures: 49067 Ea addl branch of a major coronary artery PG Care Time/CCT Total # of Minutes Spent Total Time Spent with Patient: Total time spent is greater than 50% in coordination of care (as documented) at patient's floor/unit and/or counseling patient:
[2020-07-11] MEDS: METOPROLOL TARTRATE 25 MG TAB PO SCH (19:50)
[2020-07-12] MEDS: TICAGRELOR 90 MG TAB PO SCH ×3 (02:31→21:06)
--- NOTE | 2020-07-12 06:44 | Electrocardiogram Report ---
Test Reason : Blood Pressure : / mmHG Vent. Rate : 067 BPM Atrial Rate : 067 BPM P-R Int : 150 ms QRS Dur : 098 ms QT Int : 414 ms P-R-T Axes : 057 097 046 degrees QTc Int : 437 ms Poor data quality, interpretation may be adversely affected Normal sinus rhythm Rightward axis Probable Inferior infarct , age undetermined Abnormal ECG When compared with ECG of 25-MAY-2020 19:46, Minimal criteria for Inferior infarct are now Present Confirmed by Jose Benavides ([id number]) on 07/12/2020 6:44:45 AM Referred By: REFERRED SELF Confirmed By:Jose Benavides
--- NOTE | 2020-07-12 06:48 | Electrocardiogram Report ---
Test Reason : Blood Pressure : / mmHG Vent. Rate : 069 BPM Atrial Rate : 069 BPM P-R Int : 174 ms QRS Dur : 106 ms QT Int : 422 ms P-R-T Axes : 047 054 026 degrees QTc Int : 452 ms Poor data quality, interpretation may be adversely affected Sinus rhythm with occasional Premature ventricular complexes Inferior infarct (cited on or before 10-JUL-2020) Abnormal ECG When compared with ECG of 10-JUL-2020 22:37, Premature ventricular complexes are now Present Confirmed by Jose Benavides ([id number]) on 07/12/2020 6:47:34 AM Referred By: REFERRED SELF Confirmed By:Jose Benavides
--- NOTE | 2020-07-12 06:53 | Electrocardiogram Report ---
Test Reason : Blood Pressure : / mmHG Vent. Rate : 055 BPM Atrial Rate : 055 BPM P-R Int : 186 ms QRS Dur : 102 ms QT Int : 434 ms P-R-T Axes : 061 068 041 degrees QTc Int : 415 ms Sinus bradycardia Inferior infarct (cited on or before 10-JUL-2020) Abnormal ECG When compared with ECG of 10-JUL-2020 23:24, Premature ventricular complexes are no longer Present Confirmed by Jose Benavides ([id number]) on 07/12/2020 6:52:53 AM Referred By: REFERRED SELF Confirmed By:Jose Benavides
[2020-07-12 07:51] LABS: Basophils # (auto) 0.04 K/uL (0-0.2); Basophils % (auto) 0.4 %; Eosinophils % (auto) 1.1 %; Hematocrit (blood only) 37.4 % (42-52); Immature Granulocytes # (auto) 0.03 K/uL (0.00-0.02); Immature Granulocytes % (auto) 0.3 %; Lymphocytes # (auto) 1.48 K/uL (1.2-3.4); Lymphocytes % (auto) 16.3 %; Mean Corpuscular Hemoglobin 30.5 pg (25-34); Mean Corpuscular Hgb Conc 34.8 g/dL (32-36); Mean Corpuscular Volume 87.8 fL (80-100); Mean Platelet Volume 9.4 fL (7.4-10.4); Monocytes # (auto) 0.61 K/uL (0.11-0.59); Monocytes % (auto) 6.7 %; Neutrophils # (auto) 6.83 K/uL (1.4-6.5); Neutrophils % (auto) 75.2 %; Platelet Count 200 K/uL (130-400); RDW Standard Deviation 41.6 fL (36.4-46.3); Red Blood Count 4.26 M/uL (4.7-6.1); White Blood Count 9.09 K/uL (4.8-10.8)
[2020-07-12] MEDS: ASPIRIN 81 MG ECTAB PO SCH (07:58)
[2020-07-12] MEDS: lisinopriL 5 MG TAB PO SCH (07:58)
[2020-07-12] MEDS: METOPROLOL TARTRATE 25 MG TAB PO SCH ×2 (07:59→21:07)
[2020-07-12 08:37] LABS: Albumin Level 3.5 gm/dl (3.4-5.0); BUN Creatinine Ratio 17.3 (10-20); Calcium 8.9 mg/dl (8.5-10.1); Creatinine Clr Calc Pharmacy 85.1 ml/min; Est GFR (African American) 87.4; Est GFR (Non-African American) 75.4; Potassium 3.5 mmol/L (3.5-5.1)
[2020-07-12 08:43] LABS: Albumin Globulin Ratio 1.2 (0.9-2); Globulin 2.9 gm/dl (2.5-4.0); Total Protein 6.4 gm/dl (6.4-8.2)
--- NOTE | 2020-07-12 10:57 | Cardiology Progress Note ---
Date of Service July 12, 2020 Assessment & Plan (1) Acute non-ST elevation myocardial infarction (NSTEMI): (2) CAD (coronary artery disease): (3) S/P coronary artery stent placement: (4) Paroxysmal ventricular tachycardia: (5) Dyslipidemia: ASSESSMENT/PLAN: 1. NSTEMI: RCA was the culprit vessel and underwent PCI on 07/11/2020. Continue aspirin 81 mg daily indefinitely. Continue Brilinta for at least 1 year. This was discussed with him in detail. Continue low-dose beta-rell as tolerated. BULL-inhibitor initiated today. Continue high-intensity statin therapy. Cardiac rehabilitation on discharge. 2. CAD s/p RCA and LAD PCI: Underwent PCI yesterday. Feels well today. No further angina. Medical therapy as noted above. 3. Nonsustained ventricular tachycardia: 6 beat run of ventricular tachycardia last evening, which is not unexpected. Continue telemetry for a total of 48 hours. Beta-rell as tolerated. 4. Dyslipidemia: LDL elevated in the setting of CAD. Continue high-intensity statin therapy. 5. Disposition: Can be discharged tomorrow if no complications and can tolerate ambulation in the hallway. He was encouraged to ambulate the hallway later today. Will arrange for cardiology follow-up in the office. Cardiac rehab recommended. Patient care communicated with Dr. Baker of the primary hospitalist service. Admission and Anticipated Discharge Date Admission Date: July 11, 2020 Subjective He denies chest pain, shortness of breath, syncope, near-syncope, palpitations, edema, or bleeding from his right radial cath site. He has ambulated in his room without anginal symptoms. He is tolerating his diet. He was alone in his hospital room. Review of systems: As above. Physical Exam Physical Exam: Gen.: No acute distress. Alert and oriented. HEENT: Anicteric sclera. Neck: No JVD. Cardiac: Regular. Normal S1-S2. No murmurs, rubs, or gallops. Pulmonary: Clear to auscultation bilaterally without wheezes, rales, or rhonchi. Abdomen: Soft, nontender, nondistended, with normoactive bowel sounds. No bruits noted. Extremities: Right radial cath site is clean, dry, and intact without erythema or discharge. 2+ right radial pulse. No edema or cyanosis. Psychiatric: Affect appears appropriate. Results & Data ([facility]) Vital Signs (Past 12 Hours) Vital Signs Temp Pulse Pulse Resp BP Pulse Ox Pulse Ox 07/12/20 08:00 97 07/12/20 07:14 36.6 C 54 L 20 128/75 97 07/12/20 07:00 60 07/12/20 03:06 36.7 C 58 L 18 145/84 H 98 07/11/20 23:37 56 L 07/11/20 23:24 36.9 C 62 18 119/73 94 Laboratory Results Laboratory Results - last 24 hr 07/11/20 07/11/20 07/11/20 13:05 14:18 14:35 WBC RBC Hgb Hct MCV MCH MCHC RDW Std Deviation RDW Coeff of Yuniel Plt Count MPV Immature Gran % (Auto) Neut % (Auto) Lymph % (Auto) Sully % (Auto) Eos % (Auto) Baso % (Auto) Neut # (Auto) Lymph # (Auto) Sully # (Auto) Eos # (Auto) Baso # (Auto) Immature Gran # (Auto) Activ Coag Time Kaolin 147 H 208 H 241 H Sodium Potassium Chloride Carbon Dioxide Anion Gap BUN Creatinine Est Cr Clr Drug Dosing Est GFR ( Amer) Est GFR (Non-Af Amer) BUN/Creatinine Ratio Glucose Calcium Magnesium Total Bilirubin AST ALT Alkaline Phosphatase Troponin I Total Protein Albumin Globulin Albumin/Globulin Ratio 07/11/20 07/11/20 07/12/20 15:57 21:59 07:23 WBC 9.09 RBC 4.26 L Hgb 13.0 L Hct 37.4 L MCV 87.8 MCH 30.5 MCHC 34.8 RDW Std Deviation 41.6 RDW Coeff of Yuniel 13.0 Plt Count 200 MPV 9.4 Immature Gran % (Auto) 0.3 Neut % (Auto) 75.2 Lymph % (Auto) 16.3 Sully % (Auto) 6.7 Eos % (Auto) 1.1 Baso % (Auto) 0.4 Neut # (Auto) 6.83 H Lymph # (Auto) 1.48 Sully # (Auto) 0.61 H Eos # (Auto) 0.10 Baso # (Auto) 0.04 Immature Gran # (Auto) 0.03 H Activ Coag Time Kaolin Sodium Potassium Chloride Carbon Dioxide Anion Gap BUN Creatinine Est Cr Clr Drug Dosing Est GFR ( Amer) Est GFR (Non-Af Amer) BUN/Creatinine Ratio Glucose Calcium Magnesium Total Bilirubin AST ALT Alkaline Phosphatase Troponin I 30.000 H* 23.000 H* Total Protein Albumin Globulin Albumin/Globulin Ratio 07/12/20 07:23 WBC RBC Hgb Hct MCV MCH MCHC RDW Std Deviation RDW Coeff of Yuniel Plt Count MPV Immature Gran % (Auto) Neut % (Auto) Lymph % (Auto) Sully % (Auto) Eos % (Auto) Baso % (Auto) Neut # (Auto) Lymph # (Auto) Sully # (Auto) Eos # (Auto) Baso # (Auto) Immature Gran # (Auto) Activ Coag Time Kaolin Sodium 144 Potassium 3.5 Chloride 112 H Carbon Dioxide 23 Anion Gap 9.0 BUN 18 Creatinine 1.06 Est Cr Clr Drug Dosing 85.1 Est GFR ( Amer) 87.4 Est GFR (Non-Af Amer) 75.4 BUN/Creatinine Ratio 17.3 Glucose 94 Calcium 8.9 Magnesium 2.0 Total Bilirubin 1.0 AST 95 H ALT 32 Alkaline Phosphatase 62 Troponin I Total Protein 6.4 D Albumin 3.5 Globulin 2.9 Albumin/Globulin Ratio 1.2 Diagnostic Findings Telemetry personally reviewed: Sinus rhythm with 1 run of nonsustained ventricular tachycardia, 6 beats. ECG personally reviewed: ECG 07/12/2020: Sinus rhythm 62 beats per minute. Inferior infarct. Cardiac Cath 07/11/20: Coronary angiography: 1. Left main coronary artery: The LMCA is a large caliber vessel. No significant CAD. 2. Left anterior descending: The LAD is a large-caliber vessel. Proximal LAD diffuse 70% stenosis. Small D1 and D2. BEAR-3 flow throughout. 3. Circumflex: The circumflex is a large-caliber vessel. Ostial circumflex 30%. Mid circumflex 30%. Large caliber high OM1 with proximal 40%. Small OM 2. Large OM 3. 4. Right coronary artery: The RCA is large and dominant. Proximal RCA 30%. Mid RCA 80% with probable thrombus. Large PDA and PL branch. PL mid 20%. BEAR-3 flow throughout. Left heart catheterization: 1. Left ventriculography was not performed. 2. Normal LVEDP; 11 mmHg. 3. No aortic stenosis. Peak to peak gradient across aortic valve was 0 mmHg. PCI: 1. Successful PCI of mid RCA with single drug-eluting stent (4.0 x 28 mm Xience Airam; postdilated with 4.5 NC). 2. Successful PCI of ostial to mid LAD with single drug-eluting stent (3.5 x 33 mm Xience Airam; postdilated with 4.0 NC). PG Care Time/CCT Total # of Minutes Spent Total Time Spent with Patient: Total time spent is greater than 50% in coordination of care (as documented) at patient's floor/unit and/or counseling patient: Coding Level of Care Code 13285 Subseq Hosp Care Lvl 3 Diagnoses Acute non-ST elevation myocardial infarction (NSTEMI) I21.4 CAD (coronary artery disease) I25.10 S/P coronary artery stent placement Z95.5 Paroxysmal ventricular tachycardia I47.2 Dyslipidemia E78.5
[2020-07-12] MEDS: ATORVASTATIN 40 MG TAB PO SCH (21:06)
--- NOTE | 2020-07-12 21:55 | Hospitalist Progress Note ---
Date of Service July 12, 2020 Assessment & Plan (1) Acute non-ST elevation myocardial infarction (NSTEMI): troponin peaked > 40, had chest pain and pressure several hours prior to admission initially treated with aspirin, heparin drip left heart catheterization on 07/[address] Benavides and Dr. Maharaj, found to have severe CAD RCA culprit vessel but also with disease in LAD drug eluting stent placed in both vessels, no complications continue aspirin and Brilinta, DAPT for one year lisinopril 5mg and Lopressor 12.5mg BID Lipitor 40mg daily no chest pain, stable today echo with EF of 55% and akinesis of RCA distribution plan for d/c tomorrow, follow up with cardiac rehab, cardiology in two weeks (2) Rosacea: Admission and Anticipated Discharge Date Admission Date: July 11, 2020 Subjective patient doing well today, no chest pain or pressure vitals stable, he is tolerating low dose lisinopril and Lopressor discussed with Dr. Benavides, if he remains stable today he can go tomorrow AM updated his at the bedside reviewed labs, CBC normal, Cr is 1.0 after contrast yesterday Review of Systems Review of Systems: All systems reviewed & are unremarkable except as noted in Subjective Physical Exam Constitutional: WD/WN, vitals as above Eyes: PERRL, conjunctivae normal, anicteric sclerae ENMT: external ear and nose normal, oropharynx normal Neck: trachea midline, no thyromegaly Respiratory: normal respiratory effort, lungs clear to auscultation Cardiovascular: RRR, no murmur, no edema Gastrointestinal (Abdomen): normal bowel sounds, soft, nontender, no hepatosplenomegaly Musculoskeletal: no cyanosis or clubbing, extremities motor strength 5/5 Skin: no rashes, warm and dry Neurologic: patellar DTR's 2+ bilat, sensation intact and PERRL, EOMI, accommodation nl, no face palsy, no dysarthria Psychiatric: A+Ox3, euthymic affect Lymphatic: no cervical or axillary lymphadenopathy Results & Data Results & Data ([facility]) Vital Signs (Past 12 Hours) Vital Signs Temp Pulse Pulse Resp BP Pulse Ox 07/12/20 19:12 37.4 C 84 16 126/76 100 07/12/20 15:01 36.6 C 64 19 133/78 100 07/12/20 11:21 37.1 C 53 L 19 122/74 96 Laboratory Results Laboratory Results - last 24 hr 07/11/20 07/12/20 07/12/20 21:59 07:23 07:23 WBC 9.09 RBC 4.26 L Hgb 13.0 L Hct 37.4 L MCV 87.8 MCH 30.5 MCHC 34.8 RDW Std Deviation 41.6 RDW Coeff of Yuniel 13.0 Plt Count 200 MPV 9.4 Immature Gran % (Auto) 0.3 Neut % (Auto) 75.2 Lymph % (Auto) 16.3 [place] % (Auto) 6.7 Eos % (Auto) 1.1 Baso % (Auto) 0.4 Neut # (Auto) 6.83 H Lymph # (Auto) 1.48 [place] # (Auto) 0.61 H Eos # (Auto) 0.10 Baso # (Auto) 0.04 Immature Gran # (Auto) 0.03 H Sodium 144 Potassium 3.5 Chloride 112 H Carbon Dioxide 23 Anion Gap 9.0 BUN 18 Creatinine 1.06 Est Cr Clr Drug Dosing 85.1 Est GFR ( Amer) 87.4 Est GFR (Non-Af Amer) 75.4 BUN/Creatinine Ratio 17.3 Glucose 94 Calcium 8.9 Magnesium 2.0 Total Bilirubin 1.0 AST 95 H ALT 32 Alkaline Phosphatase 62 Troponin I 23.000 H* Total Protein 6.4 D Albumin 3.5 Globulin 2.9 Albumin/Globulin Ratio 1.2 Medications Administered Current Inpatient Medications Acetaminophen (Acetaminophen 325 Mg Tab) 650 mg PO Q4H PRN PRN Reason: Pain or Fever Stop: 08/10/20 03:05 Aspirin (Aspirin 81 Mg Ectab) [address] [facility] Stop: 08/10/20 03:05 Last Admin: 07/12/20 07:58 Dose: 81 mg Documented by: Atorvastatin Calcium (Atorvastatin 40 Mg Tab) 40 mg PO [facility] Stop: 08/10/20 03:05 Last Admin: 07/12/20 21:06 Dose: 40 mg Documented by: Lisinopril (Lisinopril 5 Mg Tab) [address] [facility] Stop: 08/11/20 08:59 Last Admin: 07/12/20 07:58 Dose: 5 mg Documented by: Metoprolol Tartrate (Metoprolol Tartrate 25 Mg Tab) 12.5 mg PO BID [facility] Stop: 08/10/20 20:59 Last Admin: 07/12/20 21:07 Dose: 12.5 mg Documented by: Nitroglycerin (Nitroglycerin Sl 0.4 Mg/Tab Tab) 0.4 mg SL UD PRN PRN Reason: Chest Pain Stop: 08/10/20 03:05 Last Admin: 07/11/20 04:43 Dose: 0.4 mg Documented by: Ondansetron HCl (Ondansetron Inj 2 Mg/Ml 2 Ml Vial) 4 mg IV Q6H PRN PRN Reason: Nausea Stop: 08/10/20 03:05 Ticagrelor (Ticagrelor 90 Mg Tab) 90 mg PO BID [facility] Stop: 08/11/20 02:38 Last Admin: 07/12/20 21:06 Dose: 90 mg Documented by: PG Care Time/CCT Total # of Minutes Spent Total Time Spent: 32 Total Time Spent with Patient: Total time spent is greater than 50% in coordination of care (as documented) at patient's floor/unit and/or counseling patient: discussed with Dr. Benavides discussed with patient's at the bedside, answered questions Coding Level of Care Code 49508 Subseq Hosp Care Lvl 3 Diagnoses Acute non-ST elevation myocardial infarction (NSTEMI) I21.4 Tee L71.9
--- NOTE | 2020-07-12 22:13 | Electrocardiogram Report ---
Test Reason : Blood Pressure : / mmHG Vent. Rate : 068 BPM Atrial Rate : 068 BPM P-R Int : 192 ms QRS Dur : 102 ms QT Int : 430 ms P-R-T Axes : 052 047 042 degrees QTc Int : 457 ms Poor data quality, interpretation may be adversely affected Normal sinus rhythm Low voltage QRS Inferior infarct (cited on or before 10-JUL-2020) Abnormal ECG When compared with ECG of 11-JUL-2020 05:22, No significant change was found Confirmed by Jose Benavides ([id number]) on 07/12/2020 10:13:15 PM Referred By: REFERRED SELF Confirmed By:Jose Benavides
--- NOTE | 2020-07-12 22:55 | Electrocardiogram Report ---
Test Reason : Blood Pressure : / mmHG Vent. Rate : 062 BPM Atrial Rate : 062 BPM P-R Int : 188 ms QRS Dur : 098 ms QT Int : 418 ms P-R-T Axes : 053 066 -11 degrees QTc Int : 424 ms Normal sinus rhythm Inferior infarct (cited on or before 10-JUL-2020) Abnormal ECG When compared with ECG of 11-JUL-2020 17:32, Inverted T waves have replaced nonspecific T wave abnormality in Inferior leads Confirmed by Jose Benavides ([id number]) on 07/12/2020 10:54:51 PM Referred By: REFERRED SELF Confirmed By:Jose Benavides
[2020-07-13 07:26] VITALS: TEMP 98.2; O2SAT 97
--- NOTE | 2020-07-13 08:17 | Cardiology Progress Note ---
Date of Service July 13, 2020 Assessment & Plan (1) Acute non-ST elevation myocardial infarction (NSTEMI): (2) CAD (coronary artery disease): (3) S/P coronary artery stent placement: (4) Paroxysmal ventricular tachycardia: (5) Dyslipidemia: ASSESSMENT/PLAN: 1. NSTEMI: RCA was the culprit vessel and underwent PCI on 07/11/2020. Continue aspirin 81 mg daily indefinitely. Continue Brilinta for at least 1 year. Continue low-dose beta-rell as tolerated. Continue BULL-inhibitor. Continue high-intensity statin therapy. Cardiac rehabilitation on discharge. 2. CAD s/p RCA and LAD PCI: Underwent PCI on 07/11/2020. No angina or heart failure symptoms. Medical therapy as noted above. 3. Nonsustained ventricular tachycardia: 6 beat run of ventricular tachycardia on 07/11/2020, without recurrent VT. Continue beta-rell. 4. Dyslipidemia: LDL elevated in the setting of CAD. Continue high-intensity statin therapy. 5. Disposition: It was recommended that he ambulate the hallway and if tolerated, could be discharged. Continue cardiac medications as noted. Follow- up has been arranged in the cardiology office with me next week. Cardiac rehabilitation ordered. Admission and Anticipated Discharge Date Admission Date: July 11, 2020 Subjective He was seen early this morning, at approximately 8:30 a.m.. He felt well this morning. He had not yet ambulated in the hallway but stated that he was quite active in his room. He has not had any further angina. He denies shortness of breath, syncope, near-syncope, palpitations, edema, or bleeding. He had several questions written down to discuss when I arrived this morning. These range from cardiac rehab, to coffee consumption, coronary artery plaque buildup, etc. These were answered to the best of my ability. We did discuss cardiac rehab in detail and benefits that they may offer him. He remained interested. He consumes approximately 8 oz of coffee per day and asked that was acceptable. It was confirmed that this is acceptable. We also once again discussed cardiac catheterization findings and stents that were placed. His presented to the bedside towards the ending of our visit today. Review of systems: As above. Physical Exam Physical Exam: Gen.: No acute distress. Alert and oriented. HEENT: Anicteric sclera. Neck: No JVD. Cardiac: Regular. Normal S1-S2. No murmurs, rubs, or gallops. Pulmonary: Clear to auscultation bilaterally without wheezes, rales, or rhonchi. Abdomen: Soft, nontender, nondistended, with normoactive bowel sounds. No bruits noted. Extremities: Right radial cath site remains clean, dry, and intact without erythema or discharge. 2+ right radial pulse. No edema or cyanosis. Psychiatric: Affect appears appropriate. Results & Data ([facility]) Vital Signs (Past 12 Hours) Vital Signs Temp Pulse Pulse Resp BP Pulse Ox 07/13/20 07:56 52 L 07/13/20 07:22 36.8 C 58 L 20 119/75 97 07/13/20 03:16 36.9 C 61 18 115/71 99 07/12/20 23:07 36.7 C 64 18 136/81 98 Laboratory Results Laboratory Results - last 24 hr 07/12/20 07:23 Sodium 144 Potassium 3.5 Chloride 112 H Carbon Dioxide 23 Anion Gap 9.0 BUN 18 Creatinine 1.06 Est Cr Clr Drug Dosing 85.1 Est GFR ( Amer) 87.4 Est GFR (Non-Af Amer) 75.4 BUN/Creatinine Ratio 17.3 Glucose 94 Calcium 8.9 Magnesium 2.0 Total Bilirubin 1.0 AST 95 H ALT 32 Alkaline Phosphatase 62 Total Protein 6.4 D Albumin 3.5 Globulin 2.9 Albumin/Globulin Ratio 1.2 Diagnostic Findings Telemetry personally reviewed: Sinus rhythm. No further arrhythmia. ECG personally reviewed: ECG 07/13/2020: Sinus rhythm 60 beats per minute. Inferior T-wave inversion. Medications Administered Current Inpatient Medications Acetaminophen (Acetaminophen 325 Mg Tab) 650 mg PO Q4H PRN PRN Reason: Pain or Fever Stop: 08/10/20 03:05 Aspirin (Aspirin 81 Mg Ectab) 81 mg PO [facility] Stop: 08/10/20 03:05 Last Admin: 07/12/20 07:58 Dose: 81 mg Documented by: Atorvastatin Calcium (Atorvastatin 40 Mg Tab) 40 mg PO [facility] Stop: 08/10/20 03:05 Last Admin: 07/12/20 21:06 Dose: 40 mg Documented by: Lisinopril (Lisinopril 5 Mg Tab) 5 mg PO [facility] Stop: 08/11/20 08:59 Last Admin: 07/12/20 07:58 Dose: 5 mg Documented by: Metoprolol Tartrate (Metoprolol Tartrate 25 Mg Tab) 12.5 mg PO BID [facility] Stop: 08/10/20 20:59 Last Admin: 07/12/20 21:07 Dose: 12.5 mg Documented by: Nitroglycerin (Nitroglycerin Sl 0.4 Mg/Tab Tab) 0.4 mg SL UD PRN PRN Reason: Chest Pain Stop: 08/10/20 03:05 Last Admin: 07/11/20 04:43 Dose: 0.4 mg Documented by: Ondansetron HCl (Ondansetron Inj 2 Mg/Ml 2 Ml Vial) 4 mg IV Q6H PRN PRN Reason: Nausea Stop: 08/10/20 03:05 Ticagrelor (Ticagrelor 90 Mg Tab) 90 mg PO BID [facility] Stop: 08/11/20 02:38 Last Admin: 07/12/20 21:06 Dose: 90 mg Documented by: PG Care Time/CCT Total # of Minutes Spent Total Time Spent with Patient: Total time spent is greater than 50% in coordination of care (as documented) at patient's floor/unit and/or counseling patient: Coding Level of Care Code 14352 Subseq Hosp Care Lvl 3 Diagnoses Acute non-ST elevation myocardial infarction (NSTEMI) I21.4 CAD (coronary artery disease) I25.10 S/P coronary artery stent placement Z95.5 Paroxysmal ventricular tachycardia I47.2 Dyslipidemia E78.5
--- NOTE | 2020-07-13 09:17 | Discharge Summary ---
Date of Service July 13, 2020 Admission HPI Per Admitting Provider Mr. Payam Sanabria is a 60 y/o male with past medical hx of Rosacea who presented to [facility] for Chest Pain. He notes that he hiked about 2 miles with about 25 pounds of gear for camping/fishing trip. He states that he was struggling on the walk and generally didn't feel well. He notes that he had onset of chest pain with nausea and numerous bouts of vomiting, diaphoresis, lightheadedness. He states that this was around 2pm. He notes that he was able to get ASA x2 from a passerby around 3:30pm that resolved chest pain. He noted chest pain was located to left side and felt like ache. It did not radiate. He did not have any shortness of breath. He has not had any chest pain since. He notes he had poor PO intake of fluids and felt dehydrated today when he was walking. He also notes he quickly took his Doxycycline around 12:30pm without a full glass of water. He takes this for his rosacea. He notes he had similar episode last month that he was seen at ED with a negative trop. He notes that his friend was able to walk back to get help, EMS arrived and he was able to walk out with them. He notes his vitals were normal taken by EMS in the field. He is a non-smoker, no DM, HTN that resolved with lifestyle modifications, no family hx of early cardiac , dad had a CABG but was older age. He is a non-smoker. He denies any rash outside of rosacea which he notes has worsened on his nose recently. He also is very actively physically and exercises every other day with cardio and has not had any chest pain with exercise. Principal Diagnosis Acute non-ST elevation GA Discharge Exam Constitutional WD/WN, vitals as above Eyes PERRL, conjunctivae normal, anicteric sclerae ENMT external ear and nose normal, oropharynx normal Neck trachea midline, no thyromegaly Respiratory normal respiratory effort, lungs clear to auscultation Cardiovascular RRR, no murmur, no edema Gastrointestinal (Abdomen) normal bowel sounds, soft, nontender, no hepatosplenomegaly Musculoskeletal no cyanosis or clubbing, extremities motor strength 5/5 Skin no rashes, warm and dry Neurologic patellar DTR's 2+ bilat, sensation intact and PERRL, EOMI, accommodation nl, no face palsy, no dysarthria Psychiatric A+Ox3, euthymic affect Lymphatic no cervical or axillary lymphadenopathy Discharge Data Allergies Allergy/AdvReac Type Severity Reaction Status Date / Time No Known Drug Allergies Allergy Unknown NKDA Verified 07/10/20 23:43 pollen extracts Allergy Unknown HAYFEVER Verified 07/10/20 23:43 SYMPTOMS Consultations 07/11/20 00:10 ED Decision to Admit Stat 07/11/20 03:06 Consult Cardiology Routine 07/11/20 16:40 Consult Cardiac Rehabilitation Routine Procedures Performed Operation Date: 07/11/20 11:00 Actual Procedures p Cineradiography w/Routine Exam - Jose Benavides MD s Cath, Left with Cors and Vent - Jose Benavides MD p Drug Eluting Stent SGl Vessel - Quentin Maharaj MD s Drug Eluting Stent each ADDTL Vessel - Quentin Maharaj MD s IVUS Coronary Single Vessel - Quentin Maharaj MD s IVUS Coronary each ADDL Vessel - Quentin Maharaj MD Ordered Studies 07/11/20 12:30 CL Cath Imgs for PACS use only Routine 07/11/20 15:08 CL IVUS Coronary Single Vessel Routine Hospital Course (1) Acute non-ST elevation myocardial infarction (NSTEMI): troponin peaked > 40, had chest pain and pressure several hours prior to admission initially treated with aspirin, heparin drip left heart catheterization on 07/[address] Benavides and Dr. Maharaj, found to have severe CAD RCA culprit vessel but also with disease in LAD drug eluting stent placed in both vessels, no complications continue aspirin and Brilinta, DAPT for one year lisinopril 5mg and Lopressor 12.5mg BID Lipitor 40mg daily no chest pain, stable today echo with EF of 55% and akinesis of RCA distribution discharge home, follow up with cardiology (2) Rosacea: Total Time Total Time Spent Total Time Spent (In Minutes): 31 minutes Total Time Includes: Examination of the Patient, Discharge Planning, Medication Reconciliation, Communication With Other Providers (Dr. Maharaj) and Other (spoke with patient's at the bedside) Discharge Plan Discharge Items Patient Disposition: Home - Self-Care Reason For Visit: CHEST PAIN Discharge Diagnosis: Non ST elevation GA Severe coronary artery disease Condition on Discharge: Good Goals: medical management of coronary disease follow up with cardiology Activity: Per Instructions section Lifting: None Bathing: No limitations Sexual Activity: Wait until after follow-up appointment Exercise/Sports: Wait until after follow-up appointment Driving/Machine Use: Resume 1 day after discharge Weightbearing: Full weightbearing Non-emergency contact: Primary Care Provider and Reel Film Inspector Call non-emergency contact if: you have any medication questions and your symptoms worsen Follow-up/Referrals: Jose Benavides MD [Physician] - 07/20/20 9:30 am Keith Rivera MD [Primary Care Provider] - 07/14/20 1:30 pm Diet: Heart Healthy Addtl Attending Provider Instructions: ACTIVITY RECOMMENDATIONS: Excess manipulation of the wrist should be avoided for the next 24-48 hours. * No lifting over 2 pounds (approximately a 1/2 gallon of milk) with the utilized arm for 24 hours. * No strenuous activity such as bowling or tennis for 3 days. * Keep the site of the procedure covered with a bandage for 24 hours. *You may shower the day after the procedure. Do not take a tub bath or submerge the puncture site in water for the next 3 days. *Do not operate any motorized equipment for 3 days. SPECIAL CARE INSTRUCTIONS: The site may be slightly bruised and sore following your procedure. Should any of the following occur, contact the Dr. who performed your procedure. 1. Redness/inflammation, swelling, chills, or fever, or colored drainage at procedure site within 3-7 days after your procedure. 2. Coldness, discoloration, ongoing numbness, severe pain, or swelling. Expect mild tingling of hand and tenderness at the puncture site for up to three days. If this persists beyond three days, or other symptoms develop, notify the Dr. who performed your procedure. BLEEDING: If the procedure site on your wrist begins to bleed, do not panic 1. Place 1 or 2 fingers firmly just slightly above the insertion site to stop the bleeding. You may be able to feel your pulse as you hold pressure. 2. Lift your finger after 5 minutes to see if the bleeding has stopped. 3. Once the bleeding has stopped, gently wipe the wrist area clean with a bandage. * If the bleeding from your wrist does not stop after 10 minutes, or if there is a large amount of bleeding or spurting, call 911 (do not drive yourself to the hospital). SKIN IRRITATION: * You may experience some redness and/or swelling in the area where radiation was administered. If any skin irritation occurs, please contact your family physician. FOLLOW UP VISIT: Keep any scheduled doctor appointments. Addtl Girl Friday Provider Instructions: Medications: - LIPITOR: 40mg every evening to control cholesterol and stabilize plaques, proven to reduce risk of future GA - ASPIRIN: 81mg daily to keep stent open - BRILINTA: 90mg twice a day to keep stent open, take with aspirin for one year, do not stop without consent of hydraulic rockbreaker operator - LISINOPRIL: 5mg daily, blood pressure control, helps prevent remodeling of cardiac muscle after GA - METOPROLOL: 12.5mg twice a day, reduces blood pressure and heart rate, reduces strain on heart Acute NSTEMI treated initially with aspirin, heparin drip left heart cath found severe disease, required stent in right coronary artery (which was culprit for GA) and left anterior descending artery vitals stable, labs stable, cardiology okay with discharge take all the medications as prescribed, they are proven to reduce risk of future GA as well as prevent cardiomyopathy (heart failure) follow up with cardiology avoid strenuous activity until cleared by cardiology Pending Studies at Discharge: No Stand-Alone Forms: My [employer], Smoking Cessation Medications and DC Order Prescriptions: New atorvastatin 40 mg Tablet 40 mg PO HS 30 Days Qty: 30 RF: 3 Brilinta 90 mg Tablet 90 mg PO BID 30 Days Qty: 60 RF: 3 lisinopril [Zestril] 5 mg Tablet 5 mg PO QAM 30 Days Qty: 30 RF: 3 metoprolol tartrate 25 mg Tablet 12.5 mg PO BID Qty: 30 RF: 3 nitroglycerin [Nitrostat] 0.4 mg Tablet, Sublingual 0.4 mg sublingual UD PRN (Reason: chest pain) 30 Days Qty: 60 RF: 1 aspirin 81 mg Tablet,Delayed Release (Dr/Ec) 81 mg PO QAM 30 Days Qty: 30 RF: 3 Continued doxycycline hyclate 100 mg capsule 100 mg PO BID RF: 0 ascorbic acid (vitamin C) [Vitamin C] 500 mg Tablet,Chewable 1,500 mg PO DAILY RF: 0 Adult One Daily Gummies 200 mcg Tablet,Chewable 200 mcg PO DAILY RF: 0 melatonin 10 mg Tablet 10 mg PO HS RF: 0 Discharge Orders: Discharge Order (Routine); Ordered 07/13/20 Ordered By: Jose Baker Admission Data Admit Date/Time: 07/11/20 01:57 Attending Provider: Jose Baker Admit Provider: Moustapha Luis Primary Care Provider: Keith Rivera Other Providers: Camron Villar ; Moni Urrutia Other Interventions: Discharge Summary Assessment (RN) Last Done: 07/13/20 09:47 Coding Level of Care Code D/C Day Management >30 mins Diagnoses Acute non-ST elevation myocardial infarction (NSTEMI) I21.4 Tee L71.9
[2020-07-13] MEDS: TICAGRELOR 90 MG TAB PO SCH (09:21)
[2020-07-13] MEDS: lisinopriL 5 MG TAB PO SCH (09:21)
[2020-07-13] MEDS: METOPROLOL TARTRATE 25 MG TAB PO SCH (09:21)
[2020-07-13] MEDS: ASPIRIN 81 MG ECTAB PO SCH (09:21)
[2020-07-13 09:50] VITALS: BP 135/84; PULSE 53
--- NOTE | 2020-07-15 05:55 | Electrocardiogram Report ---
Test Reason : Blood Pressure : / mmHG Vent. Rate : 060 BPM Atrial Rate : 060 BPM P-R Int : 184 ms QRS Dur : 100 ms QT Int : 420 ms P-R-T Axes : 070 096 003 degrees QTc Int : 420 ms Normal sinus rhythm Rightward axis T wave abnormality, consider inferior ischemia Abnormal ECG When compared with ECG of 12-JUL-2020 09:55, Criteria for Inferior infarct are no longer Present T wave inversion no longer evident in Anterolateral leads Confirmed by Jose Benavides ([id number]) on 07/15/2020 5:55:27 AM Referred By: REFERRED SELF Confirmed By:Jose Benavides
== END 2020-07-13 10:15 | disposition home or self-care (01) | DRG 247 ==
LOC: ED 22:30 → 2S 07-11 01:57 → SUATTDRO 07-11 01:57 → 2S 07-11 02:51

== ENCOUNTER 2020-09-04 21:53 | Observation (INO) ==
[2020-09-04] MEDS ORDERED: NITROGLYCERIN 2% OINTMENT 30GM TUBE EXT STA (22:16)
[2020-09-04] MEDS ORDERED: ASPIRIN CHEW 324 MG PO STA (22:16)
[2020-09-04 22:18] LABS: Basophils # (auto) 0.07 K/uL (0-0.2); Basophils % (auto) 0.9 %; Eosinophils # (auto) 0.25 K/uL (0-0.5); Eosinophils % (auto) 3.3 %; Hematocrit (blood only) 42.9 % (42-52); Hemoglobin 14.9 g/dL (14.0-18.0); Immature Granulocytes # (auto) 0.03 K/uL (0.00-0.02); Immature Granulocytes % (auto) 0.4 %; Lymphocytes # (auto) 1.95 K/uL (1.2-3.4); Lymphocytes % (auto) 25.9 %; Mean Corpuscular Hemoglobin 31.4 pg (25-34); Mean Corpuscular Hgb Conc 34.7 g/dL (32-36); Mean Corpuscular Volume 90.3 fL (80-100); Mean Platelet Volume 9.7 fL (7.4-10.4); Monocytes # (auto) 0.48 K/uL (0.11-0.59); Monocytes % (auto) 6.4 %; Neutrophils # (auto) 4.75 K/uL (1.4-6.5); Neutrophils % (auto) 63.1 %; Platelet Count 238 K/uL (130-400); RDW Coefficient of Variation 13.4 % (11.5-14.5); RDW Standard Deviation 43.9 fL (36.4-46.3); Red Blood Count 4.75 M/uL (4.7-6.1); White Blood Count 7.53 K/uL (4.8-10.8)
--- NOTE | 2020-09-04 22:24 | Emergency Department Note ---
Impression & Plan Precordial chest pain, CAD (coronary artery disease), Recent myocardial infarction ED Provider Note NAME: BRE STEELE AGE: 60 SEX: M : 1960 ARRIVES VIA: Walk-In INFORMANT: [Patient][family] ED PROVIDER(S): [Luis Carvajal MD] CHIEF COMPLAINT: Chest pain HISTORY OF PRESENT ILLNESS: The patient is a 60-year-old male presents to the ER with chest discomfort that began at around 4:30 PM, just about 6 hours ago. The patient was in [place] walking from the bathroom and the pain began. The pain is described as a twinge in the left upper chest. It is a 5 or 6 on a scale of 1-10. The pain does not really radiate. There has been no shortness of breath, sweating or nausea. Patient took a total of 3 nitroglycerin with the initial bout of pain. He thinks that the nitro did help. The patient has had intermittent chest pain now in a colicky nature since the first episode. The pain lasts for 2 minutes and then resolves and then comes back about 5 or 10 minutes later. The pain is not truly exertional. It comes on without warning and is not dependent on his activity. The patient is concerned because he had a heart attack with 2 stents placed abou t a month and a half ago. There has been no cough or cold or congestion. The patient did complete cardiac rehab without difficulty. He did exercise today as normal without difficulty. Of note, the patient's chest pain today feels like his heart attack pain from a month and a half ago. REVIEW OF SYSTEMS: See HPI for pertinent positives and negatives. A total of ten systems were reviewed and were otherwise negative. PMHx/PSHx: See Below SOCIAL HISTORY: See Below. PHYSICAL EXAM: GENERAL: Patient is in no acute distress. HEENT: No acute trauma, normocephalic atraumatic, mucous membranes moist, no nasal congestion, no scleral icterus. NECK: No stridor, no adenopathy, no meningismus, trachea is midline. LUNGS: Clear to auscultation bilaterally, no wheeze, no rhonchi, breath sounds equal. HEART: Without murmurs gallops or rubs, regular rate and rhythm. Chest: Slightly tender to the left superior chest wall although, this is not the same pain that brought him in. ABDOMEN: Soft, nontender, bowel sounds positive, no hernias, no peritonitis. EXTREMITIES: No cyanosis or edema, full range of motion of all the joints without pain or difficulty, no signs for acute trauma. NEUROLOGIC: Oriented x 3, no acute motor or sensory deficits, no focal weakness. SKIN: No rash, no jaundice, no diaphoresis. DIFFERENTIAL DIAGNOSIS: Cardiac ischemia, aortic dissection, pulmonary embolism, pneumothorax, pneumonia, pericarditis, myocarditis, esophageal rupture, GERD, cholecystitis, pancreatitis, musculoskeletal, as well as other pathologies. EMERGENCY DEPARTMENT COURSE/PROCEDURES: ECG: Indication was chest pain. The ECG shows a normal sinus rhythm with a rate of 68. There is no ST elevation. There is an old inferior infarct seen. The QTc is 431. No PVCs. Compared to an ECG from 13 July 2020, the old inferior infarct is now present. Continuous Cardiac Monitoring: An order was placed for continuous cardiac monitoring. The monitor shows a rate of 72 with normal sinus rhythm. MEDICAL DECISION MAKING: There is no leukocytosis or concerning anemia. There is a normal platelet count. No coagulopathy. No significant electrolyte abnormality or kidney failure. There is no worrisome liver enzyme elevation. No evidence for pancreatitis. ECG shows a sinus rhythm with an old inferior infarct, no acute ischemic change. Cardiac enzyme testing x1 is not consistent with acute cardiac injury. Chest film does not show pneumonia, pneumothorax or mediastinal wide caty. Patient presents with chest discomfort reminiscent of his recent heart attack. He was given Nitropaste and oral aspirin. He is currently fairly comfortable. I do think the patient requires further cardiac work-up. He has significant cardiac risk factors and just had an HI. He just had 2 coronary stents placed. I spoke to the patient, I talked to case management. The on-call hospitalist was consulted. 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) Feels Safe at Home: Yes Assistive Devices: None Allergies Allergies Allergy/AdvReac Type Severity Reaction Status Date / Time No Known Drug Allergies Allergy Unknown NKDA Verified 09/04/20 23:09 pollen extracts Allergy Unknown HAYFEVER Verified 09/04/20 23:09 SYMPTOMS Home Meds Home Medications Medication Instructions Recorded Confirmed ascorbic acid (vitamin C) [Vitamin 1,500 mg PO DAILY 05/25/20 09/04/20 C] melatonin 10 mg PO HS 05/25/20 09/04/20 multivitamin with minerals-folic 1 tab PO HS tab 07/20/20 09/04/20 acid 200 mcg chewable tablet cefuroxime axetil 500 mg PO BID 09/04/20 09/04/20 Previous Rx's Medication Instructions Recorded aspirin 81 mg PO QAM 30 Days #30 tab 07/13/20 atorvastatin 40 mg PO HS 30 Days #30 tab 07/13/20 lisinopril [Zestril] 5 mg PO QAM 30 Days #30 tab 07/13/20 metoprolol tartrate 12.5 mg PO BID #30 tab 07/13/20 nitroglycerin [Nitrostat] 0.4 mg SUBLINGUAL UD PRN 30 Days 07/13/20 #60 tab ticagrelor [Brilinta] 90 mg PO BID 30 Days #60 tab 07/13/20 Results & Data (ED) Vital Signs Vital Signs - 24 hr 09/04/20 21:58 09/04/20 22:04 09/04/20 22:05 Temperature 36.4 C L Temperature Source Oral Pulse Rate 72 72 Pulse Rate from SpO2 Sensor 72 Respiratory Rate 17 10 L Blood Pressure 155/99 H 138/92 Blood Pressure Mean 117 106 Pulse Oximetry 99 98 100 Oxygen Delivery Method Room Air Room Air Sepsis Recent Fever Within 48 Hours No Sepsis New/Unexplained Change in Mental Status N/A Sepsis Action Taken by Nursing No Action Required 09/04/20 22:30 09/04/20 23:00 Temperature Temperature Source Pulse Rate 65 57 L Pulse Rate from SpO2 Sensor 65 60 Respiratory Rate 18 15 Blood Pressure 137/87 134/82 Blood Pressure Mean 102 96 Pulse Oximetry 99 99 Oxygen Delivery Method Sepsis Recent Fever Within 48 Hours Sepsis New/Unexplained Change in Mental Status Sepsis Action Taken by Residential Medications Current Medication List: was personally reviewed by me Laboratory Data Attestation: I reviewed the patient's lab results. Result diagrams: 09/04/20 22:11 09/04/20 22:11 Lab Results 09/04/20 09/04/20 09/04/20 Range/Units 22:11 22:11 22:11 WBC 7.53 (4.8-10.8) K/uL RBC 4.75 (4.7-6.1) M/uL Hgb 14.9 (14.0-18.0) g/dL Hct 42.9 (42-52) % MCV 90.3 (80-100) fL MCH 31.4 (25-34) pg MCHC 34.7 (32-36) g/dL RDW Std Deviation 43.9 (36.4-46.3) fL RDW Coeff of Yuniel 13.4 (11.5-14.5) % Plt Count 238 (130-400) K/uL MPV 9.7 (7.4-10.4) fL Immature Gran % (Auto) 0.4 % Neut % (Auto) 63.1 % Lymph % (Auto) 25.9 % [place] % (Auto) 6.4 % Eos % (Auto) 3.3 % Baso % (Auto) 0.9 % Neut # (Auto) 4.75 (1.4-6.5) K/uL Lymph # (Auto) 1.95 (1.2-3.4) K/uL [place] # (Auto) 0.48 (0.11-0.59) K/uL Eos # (Auto) 0.25 (0-0.5) K/uL Baso # (Auto) 0.07 (0-0.2) K/uL Immature Gran # (Auto) 0.03 H (0.00-0.02) K/uL PT 10.7 (9.0-12.0) Seconds INR 1.0 (0.9-1.1) APTT 30.1 (21.0-31.0) Seconds PTT Ratio 1.1 Sodium 142 (136-145) mmol/L Potassium 4.1 (3.5-5.1) mmol/L Chloride 109 H (98-107) mmol/L Carbon Dioxide 27 (21-32) mmol/L Anion Gap 6.0 (3-11) BUN 19 H (7-18) mg/dl Creatinine 1.18 (0.6-1.4) mg/dl Est Cr Clr Drug Dosing 82.6 ml/min Est GFR ( Amer) 76.7 Est GFR (Non-Af Amer) 66.2 BUN/Creatinine Ratio 16.1 (10-20) Glucose 97 (70-99) mg/dl Calcium 8.8 (8.5-10.1) mg/dl Magnesium 2.0 (1.8-2.4) mg/dl Total Bilirubin 0.6 (0.2-1) mg/dl AST 20 (15-37) U/L ALT 22 (12-78) U/L Alkaline Phosphatase 93 (45-117) U/L Troponin I < 0.015 (0-0.045) ng/ml Total Protein 7.5 (6.4-8.2) gm/dl Albumin 4.2 (3.4-5.0) gm/dl Globulin 3.3 (2.5-4.0) gm/dl Albumin/Globulin Ratio 1.3 (0.9-2) Lipase 132 (73-393) U/L Administered Medications Discontinued Medications Aspirin (Aspirin Chew 324 Mg) 324 mg PO NOW STA Stop: 09/04/20 22:17 Last Admin: 09/04/20 22:34 Dose: 324 mg Documented by: [id number] Nitroglycerin (Nitroglycerin 2% Ointment 30gm Tube) 2 inch EXT NOW STA Stop: 09/04/20 22:17 Last Admin: 09/04/20 22:34 Dose: 2 inch Documented by: [id number] Imaging Data Attestation: I personally reviewed and interpreted this imaging study as follows: My Impression: Chest x-ray: There is no mediastinal widening, pneumonia or pneumothorax. The lungs appear clear. Discharge Plan Visit Data Chief Complaint: Cardiac Assessment Stated Complaint: ANGINA - HAD HEART ATTACK 8 WKS AGO ED Provider: Luis Carvajal Discharge Problem: Precordial chest pain, CAD (coronary artery disease), Recent myocardial infarction Patient Disposition: Admitted As Inpatient Condition: Good Forms Stand Alone Forms: My [facility] Prescriptions Prescriptions: No Action atorvastatin 40 mg Tablet 40 mg PO HS 30 Days Qty: 30 RF: 3 Brilinta 90 mg Tablet 90 mg PO BID 30 Days Qty: 60 RF: 3 lisinopril [Zestril] 5 mg Tablet 5 mg PO QAM 30 Days Qty: 30 RF: 3 metoprolol tartrate 25 mg Tablet 12.5 mg PO BID Qty: 30 RF: 3 nitroglycerin [Nitrostat] 0.4 mg Tablet, Sublingual 0.4 mg sublingual UD PRN (Reason: chest pain) 30 Days Qty: 60 RF: 1 aspirin 81 mg Tablet,Delayed Release (Dr/Ec) 81 mg PO QAM 30 Days Qty: 30 RF: 3 cefuroxime axetil 500 mg tablet 500 mg PO BID RF: 0 ascorbic acid (vitamin C) [Vitamin C] 500 mg Tablet,Chewable 1,500 mg PO DAILY RF: 0 melatonin 10 mg Tablet 10 mg PO HS RF: 0 Adult One Daily Gummies 200 mcg tablet,chewable 1 tab PO HS RF: 0 Referrals Referrals: Keith Rivera MD [Primary Care Provider] - Discharge Problem: CAD (coronary artery disease) Qualifiers: Coronary Disease-Associated Artery/Lesion type: unspecified vessel or lesion type [place] vs. transplanted heart: [place] heart Associated angina: without an cecilia Qualified Code(s): I25.10 - Atherosclerotic heart disease of [place] co ronary artery without angina pectoris
[2020-09-04 22:30] LABS: Partial Thromboplastin Ratio 1.1; Partial Thromboplastin Time 30.1 Seconds (21.0-31.0); Prothrombin Time 10.7 Seconds (9.0-12.0)
[2020-09-04 22:34] LABS: Alanine Aminotransferase 22 U/L (12-78); Albumin Level 4.2 gm/dl (3.4-5.0); Aspartate Aminotransferase 20 U/L (15-37); BUN Creatinine Ratio 16.1 (10-20); Blood Urea Nitrogen 19 mg/dl (7-18); Calcium 8.8 mg/dl (8.5-10.1); Carbon Dioxide 27 mmol/L (21-32); Chloride 109 mmol/L (98-107); Creatinine Clr Calc Pharmacy 82.6 ml/min; Est GFR (African American) 76.7; Est GFR (Non-African American) 66.2; Glucose 97 mg/dl (70-99); Lipase 132 U/L (73-393); Potassium 4.1 mmol/L (3.5-5.1); Sodium 142 mmol/L (136-145)
[2020-09-04 22:39] LABS: Albumin Globulin Ratio 1.3 (0.9-2); Alkaline Phosphatase 93 U/L (45-117); Bilirubin,Total 0.6 mg/dl (0.2-1); Globulin 3.3 gm/dl (2.5-4.0); Total Protein 7.5 gm/dl (6.4-8.2); Troponin I < 0.015 ng/ml (0-0.045)
--- NOTE | 2020-09-04 23:56 | History & Physical Report ---
Date of Service September 04, 2020 Assessment & Plan (1) CAD (coronary artery disease): (2) Rosacea: (3) Dyslipidemia: (4) Chest pain: Mr. Sanabria is a 60yo gentleman with a PMhx significant for CAD with NSTEMI in Jun 2020 (s/p stent placement in his RCA and LAD), sleep apnea s/p UPPP surgery, rosecea and ?Lyme disease who was admitted for ACS rule-out. Chest pain/ACS rule-out -Pt states it is 8 week anniversary of NSTEMI, finished cardiac rehab a week ago -Was on his eliipitical this AM with HR as high as 140 (no different from cardiac rehab) and was wine-touring in [place] with later in the day. -Developed 6/[address] back about 4:30pm, after pumping gas walking to his car -Took 3 nitroglycerin tabs over 15 minutes which decreased chest pain -Describes the pain as sharp, nonradiating, similar to his NSTEMI chest pain but not associated with N/V, SOB or diaphoresis -Currently has chest pain, 3/10, nonreproducible on exam -Of note, pt states that he presented similarly in May BEFORE his NSTEMI visit in June, where he had no trop elevation and was sent home. Would like to avoid a similar incident. -EKG with no new signs of ischemia this visit, troponins NEGATIVE so far -trend trops q6h -nitro-bid 1inch q6h scheduled -morphine 2mg q2h PRN for additional pain -continue home Brilinta 90mg po BID, aspirin 81mg daily, lisinopril 5mg daily, atorvastatin 40mg daily, metoprolol tartrate 12.5mg BID -consult cardiology, recs appreciated -pt npo, in case cardiology thinks cath necessary Left shoulder pain -pt states he has a Hx of trauma from 20 years ago -pain in shoulder associated with numbness and tingling first 3 digits of his left hand -consider further outpt workup ?Lyme Disease/Swollen lymph nodes -Pt states he was diagnosed with this by his PCP for tender lymph nodes particularly in neck and under left arm -lymphadenopathy not appreciated on exam tonight -states he completed courses of doxycycline (also for his rosecea) -continue home cefuroxime 500mg BID Sleep Apnea -Pt states he had UPPP surgery in [address] Louis Weinberg -previously on doxycycline FEN/GI: NPO for possible procedure DVT prophylaxis: On Brilinta and aspirin CODE STATUS: Full code Dispo: Med/Surg with tele History of Present Illness Primary Care Provider: Keith Rivera MD Mr. Sanabria is a 60yo gentleman with a PMhx significant for CAD with NSTEMI in Jun 2020 (s/p stent placement in his RCA and LAD), sleep apnea s/p UPPP surgery, rosecea and ?Lyme disease who was admitted for ACS rule-out. Pt states that he fist developed chest pain about 4:30pm on his way back from a wine tour in [place] with his . Stated he had gotten out of the car to pump gas and use the bathroom at [facility] and was walking back to car when he suddenly developed the chest pain. Describes it as the chest pain he had when he had his NSTEMI, nonradiating, sharp and NOT associated with N/V, diaphoresis or SOB. States he was on his ellipitical this AM working out, but he had been doing that throughout his cardiac rehab that he just finished a week ago. Of note, he is presenting on the 8th week anniversary of his NSTEMI. States he took 3 nitro pills when his chest pain developed over the course of 15 minutes and had some relief. They drove home before presenting and he noted that his BP was systolic 120s. Of note pt states that he presented in May similarly before he had his NSTEMI in June where he had the similar chest pain but did not bump a trop or show ischemic changes on his EKG. States he wants to be extra careful this time around. He has never smoked cigarettes and states he exercises regularly. He has been following a mediterranean diet though he states he "cheats" occasionally on the weekends. His father had triple bypass surgery at 81 and his mom also had an IA in her later years. He was on a wine tour today so had more alcohol than usual but states he averages to 2 drinks per week. No recreational drug use. 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 states he was writing checks earlier today as well but they deny financial stressors. Allergies Allergy/AdvReac Type Severity Reaction Status Date / Time No Known Drug Allergies Allergy Unknown NKDA Verified 09/04/20 23:09 pollen extracts Allergy Unknown HAYFEVER Verified 09/04/20 23:09 SYMPTOMS Home Medications Home Medications Medication Instructions Recorded Confirmed Type ascorbic acid (vitamin C) [Vitamin 1,500 mg PO DAILY 05/25/20 09/04/20 History C] melatonin 10 mg PO HS 05/25/20 09/04/20 History aspirin 81 mg PO QAM 30 Days #30 tab 07/13/20 09/04/20 Rx atorvastatin 40 mg PO HS 30 Days #30 tab 07/13/20 09/04/20 Rx lisinopril [Zestril] 5 mg PO QAM 30 Days #30 tab 07/13/20 09/04/20 Rx metoprolol tartrate 12.5 mg PO BID #30 tab 07/13/20 09/04/20 Rx nitroglycerin [Nitrostat] 0.4 mg SUBLINGUAL UD PRN 30 Days 07/13/20 09/04/20 Rx #60 tab ticagrelor [Brilinta] 90 mg PO BID 30 Days #60 tab 07/13/20 09/04/20 Rx multivitamin with minerals-folic 1 tab PO HS tab 07/20/20 09/04/20 History acid 200 mcg chewable tablet cefuroxime axetil 500 mg PO BID 09/04/20 09/04/20 History Past Med/Surg History Medical History Acute non-ST elevation myocardial infarction (NSTEMI) CAD (coronary artery disease) Dyslipidemia Sleep apnea Surgical History History of heart artery stent PCI of mRCA to mLAD No pertinent past surgical history Social History Smoking Status: Never smoker Second Hand Exposure: No; Hx Alcohol Use: Yes Alcohol type: wine and hard liquor Hx Substance Use: No Preferred Language: Tunisian Communication Ability: Effective 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 Beliefs That Will Affect Care: None Current Living Situation: Spouse 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) Other Information That Helps Us Care for You: No Feels Safe at Home: Yes Safety Concerns: Feels Safe At This Time Assistive Devices: Glasses Review of Systems Constitutional: no fever, no chills and no sweats Eyes: no worsening vision Ear, Nose, Mouth, Throat: no nasal congestion and no sore throat Respiratory: no cough, no dyspnea and no dyspnea on exertion Cardiovascular: + chest pain and + chest pain at rest; no radiating jaw, neck or arm pain, no dyspnea, no dyspnea at rest, no dyspnea on exertion and no palpitations Gastrointestinal: no nausea, no vomiting, no constipation, no diarrhea/loose stools and no blood in stools Genitourinary: no dysuria and no hematuria Musculoskeletal: + joint pain (shoulder pain) Integumentary: no rash Neurologic: + tingling and + numbness; no headache(s) and no confusion Psychiatric: no confusion Physical Exam Physical Exam: General: Alert, oriented. No acute distress, sitting up in bed Skin: No noted rashes or bruises Psych: Appropriate mood and affect Neuro: No gross deficits HEENT: NC/AT Chest: Nontender to palpation. CV: RRR, Normal s1, s2. No murmurs appreciated Resp: Breath sounds clear bilaterally, no increased effort of breathing. No crackles/rhonchi/rales. Abdomen: Soft, nontender, nondistended. No guarding. No organomegaly appreciated. Extremities: No edema in lower extremities bilaterally. Results & Data Results & Data ([facility]) Vital Signs (Past 12 Hours) Vital Signs Temp Pulse Resp BP Pulse Ox 09/04/20 23:00 57 L 15 134/82 99 09/04/20 22:30 65 18 137/87 99 09/04/20 22:05 72 10 L 138/92 100 09/04/20 22:04 98 09/04/20 21:58 36.4 C L 72 17 155/99 H 99 Code Status & VTE Plan VTE Prophylaxis Plan VTE Prophylaxis will be ordered: Yes Supervising Physician Co-Signing Physician Notes Patietn seen and examined chart reviewed, case discussed with Dr. Avina and I agree with her assessment and plan as documented above. Briefly, patient is a 60yo C male with NSTEMI 8 weeks ago s/p stent placement presenting with chest pain. Non-exertional, no SOB/palpitations/nausea/vomiting/diaphoresis. Relieved with Nitro. ?Positional On exam he is afebrile, HD stable, NAD Skin -intact, no rash HEENT - NC/AT, PERRL, EOMI, MMM, Neck supple. Tenderness with palpation of left SCM muscle however, no LAD appreciated, no matting or masses Heart - +S1/S2, regular, no m/r/g Lungs - CTA Abd - +BS, soft, NT/ND Ext - No edma No axillary LAD Labs, images, EKG reviewed, Troponin negative, EKG unchanged from prior. Patient is compliant with his medications without missing any doses. 60yo C male with history of CAD s/p NSTEMI 8 weeks ago with stent placement to RCA and LAD, chest pain. 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 transplanted heart: [place] heart Qualified Code(s): I25.10 - Atherosclerotic heart disease of [place] coronary artery without angina pectoris
[2020-09-05] MEDS ORDERED: MoRPHine SULFATE 2 MG/ML CARP IV PRN (00:32)
[2020-09-05] MEDS: NITROGLYCERIN 2% OINTMENT 30GM TUBE EXT SCH ×3 (00:40→12:11)
[2020-09-05] MEDS ORDERED: ONDANSETRON INJ 2 MG/ML 2 ML VIAL IV PRN (01:22)
--- NOTE | 2020-09-05 03:50 | Billing Data ---
Date of Service September 04, 2020 Coding Level of Care Code 37352 OBS Care - Level 3
[2020-09-05 04:30] LABS: Basophils # (auto) 0.05 K/uL (0-0.2); Basophils % (auto) 0.7 %; Eosinophils # (auto) 0.18 K/uL (0-0.5); Eosinophils % (auto) 2.7 %; Hematocrit (blood only) 36.8 % (42-52); Hemoglobin 12.9 g/dL (14.0-18.0); Immature Granulocytes # (auto) 0.02 K/uL (0.00-0.02); Immature Granulocytes % (auto) 0.3 %; Lymphocytes # (auto) 2.21 K/uL (1.2-3.4); Lymphocytes % (auto) 32.7 %; Mean Corpuscular Hemoglobin 31.5 pg (25-34); Mean Corpuscular Hgb Conc 35.1 g/dL (32-36); Mean Platelet Volume 9.3 fL (7.4-10.4); Monocytes % (auto) 5.9 %; Neutrophils # (auto) 3.89 K/uL (1.4-6.5); Neutrophils % (auto) 57.7 %; Platelet Count 194 K/uL (130-400); RDW Coefficient of Variation 13.5 % (11.5-14.5); RDW Standard Deviation 44.2 fL (36.4-46.3); Red Blood Count 4.09 M/uL (4.7-6.1); White Blood Count 6.75 K/uL (4.8-10.8)
[2020-09-05 04:49] LABS: Calcium 8.3 mg/dl (8.5-10.1); Creatinine Clr Calc Pharmacy 84.3 ml/min; Est GFR (African American) 86.4; Est GFR (Non-African American) 74.5; Potassium 3.8 mmol/L (3.5-5.1)
--- NOTE | 2020-09-05 07:46 | Hospitalist Progress Note ---
Date of Service September 05, 2020 Assessment & Plan (1) CAD (coronary artery disease): (2) Rosacea: (3) Dyslipidemia: (4) Chest pain: Mr. Sanabria is a 60yo gentleman with a PMhx significant for CAD with NSTEMI in Jun 2020 (s/p stent placement in his RCA and LAD), sleep apnea s/p UPPP surgery, rosecea and ?Lyme disease who was admitted for ACS rule-out. sinus currently 60s. sinus rk w/ some pvcs overnight 50s Chest pain/ACS rule-out -no current cp. nitro paste working -EKG with no new signs of ischemia this visit, troponins NEGATIVE so far -trend trops q6h -nitro-bid 1inch q6h scheduled -morphine 2mg q2h PRN for additional pain -continue home Brilinta 90mg po BID, aspirin 81mg daily, lisinopril 5mg daily, atorvastatin 40mg daily, metoprolol tartrate 12.5mg BID -consult cardiology, recs appreciated -pt npo, in case cardiology thinks cath necessary Left shoulder pain restarted workout at gym on . some soreness after workout. numbness chronic in L fingers attributes dotator cuff dmg 20 yrs ago. different from the sensation he had during nstemi jun - outpt f/u ?Lyme Disease/Swollen lymph nodes 01/2020 had generalized sore mildly LAD, took doxy, improved. jul took course of cerufoxine 10 days. saturday resterted course of cerufoxime reactive to 23 kd igm band (jul) -Pt states he was diagnosed with this by his PCP for tender lymph nodes particularly in neck and under left arm -lymphadenopathy not appreciated on exam tonight -states he completed courses of doxycycline (also for his rosecea) -continue home cefuroxime 500mg BID Sleep Apnea UPPP surgery in [address] Louis Weinberg -previously on doxycycline FEN/GI: NPO for possible procedure DVT prophylaxis: On Brilinta and aspirin CODE STATUS: Full code Dispo: Med/Surg with tele Admission and Anticipated Discharge Date Admission Date: September 04, 2020 Subjective no current pain. hpi. similar to previous episodes. not as strong. pain in same location. 2.5-5 min episodes 1030am normal workout 27 minutes on elipitical. 11am-230 at [place], drank samples+8oz glass of white wine. 3am drove towards home, 1.5 hr later, pain started. 6-7. couple min episodes, intermittent. Lupper chest. sharp. no radiation. no arm numbness, nausea, sweating (unlike the heart atk in june and s/p stent). sent home on atorva, brilinta, baby asa, metoprolol. after nitro, 2- 3. for 2 hours. when got home, after a few loads of laundry, ~9pm, the pain came back. took 3 nitros. knocked the pain down. few hours later, after got home, pain returned 7-8, a little stronger. strong enough and frequent enough that he came in. similar frequency, every couple minutes. last episode about 10pm in ed waiting. unsure if exertional. not worse if lie down or deep breathing. neg other ros at the time. currently, no cp. neg other ros. father: triple bypass at 71. mother [place] at 83. mgf: stroke. pgf: [place] s/p leukemia may this year was first incidence of chest pain. follows tess jaeger Review of Systems Review of Systems: Constitutional: Denies fever, chills, weight change Eyes: Denies blurry vision, vision changes ENT: Denies sore throat, sinus pain Cardiovascular: Denies chest pain, palpitations Respiratory: Denies shortness of breath, cough, sputum production, difficulty breathing Gastrointestinal: Denies abdominal pain, nausea, vomiting, constipation, diarrhea Genitourinary: Denies urinary symptoms including dysuria Musculoskeletal: Denies weakness, muscle aches/pain, joint aches/pain Neurological: Denies headache, numbness, tingling, focal weakness Physical Exam Physical Exam: General: Grossly A&O. NAD. Cooperative. HEENT: Atraumatic, normocephalic. EOMI Pulm: CTAB. -wheezes, -rales, -rhonchi. No respiratory distress. Cardiac: RRR, -mrg. Radial pulses intact and symmetrical. Abdominal: Nontender, nondistended, soft. heart lung, abd, pulses. no pedal edema eomi L posterior cervical mild tenderness. no palpable lad. no L axillary ttp or palpable lad Results & Data Results & Data ([facility]) Vital Signs (Past 12 Hours) Vital Signs Temp Pulse Pulse Resp BP BP Pulse Ox 09/05/20 07:09 36.8 C 56 L 18 106/60 97 09/05/20 01:33 54 L 09/05/20 00:30 36.7 C 54 L 18 125/78 99 09/05/20 00:00 56 L 24 141/81 H 99 09/04/20 23:30 59 L 18 135/87 100 09/04/20 23:00 57 L 15 134/82 99 09/04/20 22:30 65 18 137/87 99 09/04/20 22:05 72 10 L 138/92 100 09/04/20 22:04 98 09/04/20 21:58 36.4 C L 72 17 155/99 H 99 Resident Activity Tracking Resident Involvement: Resident Care Provided Care Provided: Adult Hospital Medicine (1) CAD (coronary artery disease) Associated angina: without angina Coronary Disease-Associated Artery/Lesion type: unspecified vessel or lesion type [place] vs. transplanted heart: [facility] [place] heart Qualified Code(s): I25.10 - Atherosclerotic heart disease of [facility] [place] coronary artery without angina pectoris
--- NOTE | 2020-09-05 07:49 | XRay Report ---
XR chest 1V portable CLINICAL HISTORY: Atypical chest pain. COMPARISON STUDY: Chest radiograph July 10, 2020. FINDINGS: Lung volumes are normal. Lungs are clear. There is no pneumothorax or pleural effusion. Car diac size is normal. Mediastinal contours are normal. There is no evidence for pulmonary edema. IMPRESSION: No acute cardiopulmonary findings. ACT 112: Negative or not required by law. Electronically signed by: Hank Garcia M.D. 09/05/2020 7:48 AM
--- NOTE | 2020-09-05 08:07 | Cardiology Consultation ---
Date of Consultation September 05, 2020 Assessment & Plan (1) Chest pain: (2) CAD (coronary artery disease): (3) History of heart artery stent: (4) Dyslipidemia: ASSESSMENT/PLAN: 1. Chest pain: He believes that his chest pain was similar to his angina but the fact that his episodes were prolonged with negative cardiac enzymes is reassuring. ECG without dynamic changes. Recommend stress echo. Presentation is not consistent with stent thrombosis as would expect to see ECG changes and elevated troponins. He has ruled out for myocardial infarction. If stress echo is unremarkable, would recommend evaluation for noncardiac chest pain by hospitalist service and PCP. 2. CAD s/p RCA and LAD PCI: Continue aspirin 81 mg daily indefinitely. Continue Brilinta. Continue BULL-inhibitor, beta-rell, and high-intensity statin therapy. He did not receive any of his morning medications. Discussed with nursing staff so that he will receive his usual cardiac medications now. Somewhat atypical chest pain as above for which stress echo is recommended. 3. Dyslipidemia: Continue high-intensity statin therapy. 4. Disposition: Stress echo pending. If stress echo is unremarkable, would recommend evaluation for noncardiac chest pain by the primary service. Plan of care communicated with Dr. Bell of the primary hospitalist service. Thank you for allowing me to participate in the care of your patient. Please call for any other questions or concerns. Sincerely, Arya Benavides M.D. History of Present Illness Reason for Consultation: Chest pain Requesting Physician: Dr. Avina Attending Physician: Romaine Bell DO History of Present Illness Mr. Sanabria is a pleasant 60-year-old gentleman with a history significant for CAD s/p NSTEMI (07/11/20), RCA and LAD PCI (07/11/20), dyslipidemia, and sleep apnea s/p surgery. On 07/11/2020, he was admitted to [facility] with NSTEMI, with troponin peaking at 42.7. Angina consisted of left-sided chest pressure with diaphoresis, nausea, and vomiting while [place]. He underwent cardiac catheterization demonstrating severe RCA disease with thrombus thought to be the culprit vessel as well as severe proximal LAD CAD. He underwent PCI of both his mid RCA and proximal LAD. He has had the following studies/procedures: 1. Echo 07/11/2020: Normal LV size, systolic function. EF 55-60%. Severe hypokinesis to akinesis of the mid inferolateral wall. Mild hypokinesis of the mid to distal inferior wall. Mild LVH. Mild left atrial dilation. No significant valvular abnormalities. Normal RVSP. 2. Cardiac catheterization 07/11/2020: Proximal LAD diffuse 70%. Ostial circumflex 30%. Mid circumflex 30%. Proximal high OM1 40%. Dominant RCA. Proximal RCA 30%. Mid RCA 80% with probable thrombus. Mid PL 20%. LVEDP 11. No aortic stenosis. PCI of mid RCA with 4 x 28 mm Xience Airam, post dilated with 4.5 NC. Ostial to mid LAD PCI with 3.5 x 33 mm Xience Airam, post dilated with 4 NC. He was admitted again on 09/04/2020 for chest discomfort. He states that today's 8 week anniversary from his [place]. He completed cardiac rehab a week ago today. He was exercising quite vigorously, including 50 minutes last Saturday, cardiovascular exercise on Saturday, and then a 5 mi hike on Saturday. He was in [place] over the weekend and on Saturday, yesterday, he exercised for 27 minutes on a treadmill and felt very well without chest discomfort or shortness of breath. He then went wine tasting and had lunch. On the way home while at [facility] and seated in a car, he developed chest discomfort which she calls angina. He describes it as a sharp and squeezing sensation on the left side of his chest without significant radiation. There was no shortness of breath or accompanied diaphoresis. This was at approximately 4:30 p.m.. He took nitroglycerin for a total of 3-4 doses over 10-15 minutes with improvement, but not necessarily resolution of his chest discomfort. When he got home, he was getting ready for bed and had worsening of his pain at approximately 9:00 p.m.. He states that by 10:30 p.m. while in the ER, the symptoms had subsided. He did have a twinge while being admitted by the hospitalist. He states that his symptoms may have been more intermittent and describes a clenching and unclenching sensation. He has felt well today but well speaking together earlier today, he noticed some mild recurrence of his presenting symptom. He denies melena, hematochezia, hematuria or other bleeding. He denies nausea, vomiting, fevers, chills, edema, syncope, near-syncope, palpitations. He otherwise has been feeling well. With all of the exercise that he has been performing, he has not had any anginal symptoms. He is also concerned that perhaps Lyme disease is playing a role. Review of systems: As above. Review of systems otherwise negative/unremarkable. Family history: Father diagnosed with CAD near the age of 71 and underwent PCI and CABG. Mother had [place] in her 80s. Social history: Denies tobacco or drug abuse. Occasional alcohol. Lives at home with his , Jenna. They have a son and a daughter. Grandchildren. 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 Was alone in his hospital room. Allergies Allergy/AdvReac Type Severity Reaction Status Date / Time No Known Drug Allergies Allergy Unknown NKDA Verified 09/04/20 23:09 pollen extracts Allergy Unknown HAYFEVER Verified 09/04/20 23:09 SYMPTOMS Home Medications Home Medications Medication Instructions Recorded Confirmed Type ascorbic acid (vitamin C) [Vitamin 1,500 mg PO DAILY 05/25/20 09/04/20 History C] melatonin 10 mg PO HS 05/25/20 09/04/20 History Brilinta 90 mg PO BID 30 Days #60 tab 07/13/20 09/04/20 Rx aspirin 81 mg PO QAM 30 Days #30 tab 07/13/20 09/04/20 Rx atorvastatin 40 mg PO HS 30 Days #30 tab 07/13/20 09/04/20 Rx lisinopril [Zestril] 5 mg PO QAM 30 Days #30 tab 07/13/20 09/04/20 Rx metoprolol tartrate 12.5 mg PO BID #30 tab 07/13/20 09/04/20 Rx nitroglycerin [Nitrostat] 0.4 mg SUBLINGUAL UD PRN 30 Days 07/13/20 09/04/20 Rx #60 tab multivitamin with minerals-folic 1 tab PO HS tab 07/20/20 09/04/20 History acid 200 mcg chewable tablet cefuroxime axetil 500 mg PO BID 09/04/20 09/04/20 History Patient History Medical History Acute non-ST elevation myocardial infarction (NSTEMI) CAD (coronary artery disease) Dyslipidemia Sleep apnea Surgical History (Updated 09/05/20 @ 13:44 by Jose Benavides MD) History of heart artery stent PCI of RCA and LAD Social History Smoking Status: Never smoker Second Hand Exposure: No; Hx Alcohol Use: Yes Alcohol type: wine and hard liquor Hx Substance Use: No Preferred Language: Hungarian Communication Ability: Effective Toddler Guide Required: No Beliefs That Will Affect Care: None Current Living Situation: Spouse 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 Alert and oriented. HEENT: Anicteric sclera. Neck: No JVD. No bruit. Normal carotid upstrokes bilaterally. Cardiac: PMI was nondisplaced. No ventricular heave. Regular rate and rhythm. Normal S1-S2. No murmurs, rubs, or gallops. Pulmonary: Clear to auscultation bilaterally without wheezes, rales, or rhonchi. Abdomen: Soft, nontender, nondistended, with normoactive bowel sounds. No bruits noted. Extremities: 2+ radial pulses bilaterally. 2+ posterior tibialis pulses bilaterally. No edema or cyanosis. No palpable cords. Psychiatric: Affect appears appropriate. Chest: Left chest is tender to palpation, but different than his presenting symptom. Results & Data ([facility]) Vital Signs (Past 12 Hours) Vital Signs Temp Pulse Pulse Resp BP BP Pulse Ox 09/05/20 07:09 36.8 C 56 L 18 106/60 97 09/05/20 01:33 54 L 09/05/20 00:30 36.7 C 54 L 18 125/78 99 09/05/20 00:00 56 L 24 141/81 H 99 09/04/20 23:30 59 L 18 135/87 100 09/04/20 23:00 57 L 15 134/82 99 09/04/20 22:30 65 18 137/87 99 09/04/20 22:05 72 10 L 138/92 100 09/04/20 22:04 98 09/04/20 21:58 36.4 C L 72 17 155/99 H 99 Laboratory Results Laboratory Results - last 24 hr 09/04/20 09/04/20 09/04/20 22:11 22:11 22:11 WBC 7.53 RBC 4.75 Hgb 14.9 Hct 42.9 MCV 90.3 MCH 31.4 MCHC 34.7 RDW Std Deviation 43.9 RDW Coeff of Yuniel 13.4 Plt Count 238 MPV 9.7 Immature Gran % (Auto) 0.4 Neut % (Auto) 63.1 Lymph % (Auto) 25.9 Towns % (Auto) 6.4 Eos % (Auto) 3.3 Baso % (Auto) 0.9 Neut # (Auto) 4.75 Lymph # (Auto) 1.95 Towns # (Auto) 0.48 Eos # (Auto) 0.25 Baso # (Auto) 0.07 Immature Gran # (Auto) 0.03 H PT 10.7 INR 1.0 APTT 30.1 PTT Ratio 1.1 Sodium 142 Potassium 4.1 Chloride 109 H Carbon Dioxide 27 Anion Gap 6.0 BUN 19 H Creatinine 1.18 Est Cr Clr Drug Dosing 82.6 Est GFR ( Amer) 76.7 Est GFR (Non-Af Amer) 66.2 BUN/Creatinine Ratio 16.1 Glucose 97 Calcium 8.8 Magnesium 2.0 Total Bilirubin 0.6 AST 20 ALT 22 Alkaline Phosphatase 93 Troponin I < 0.015 Total Protein 7.5 Albumin 4.2 Globulin 3.3 Albumin/Globulin Ratio 1.3 Lipase 132 09/05/20 09/05/20 09/05/20 04:19 04:19 04:19 WBC 6.75 RBC 4.09 L Hgb 12.9 L Hct 36.8 L MCV 90.0 MCH 31.5 MCHC 35.1 RDW Std Deviation 44.2 RDW Coeff of Yuniel 13.5 Plt Count 194 MPV 9.3 Immature Gran % (Auto) 0.3 Neut % (Auto) 57.7 Lymph % (Auto) 32.7 Towns % (Auto) 5.9 Eos % (Auto) 2.7 Baso % (Auto) 0.7 Neut # (Auto) 3.89 Lymph # (Auto) 2.21 Towns # (Auto) 0.40 Eos # (Auto) 0.18 Baso # (Auto) 0.05 Immature Gran # (Auto) 0.02 PT INR APTT PTT Ratio Sodium 143 Potassium 3.8 Chloride 112 H Carbon Dioxide 27 Anion Gap 4.0 BUN 17 Creatinine 1.07 Est Cr Clr Drug Dosing 84.3 Est GFR ( Amer) 86.4 Est GFR (Non-Af Amer) 74.5 BUN/Creatinine Ratio 16.0 Glucose 95 Calcium 8.3 L Magnesium Total Bilirubin AST ALT Alkaline Phosphatase Troponin I < 0.015 Total Protein Albumin Globulin Albumin/Globulin Ratio Lipase 09/05/20 09:56 WBC RBC Hgb Hct MCV MCH MCHC RDW Std Deviation RDW Coeff of Yuniel Plt Count MPV Immature Gran % (Auto) Neut % (Auto) Lymph % (Auto) Towns % (Auto) Eos % (Auto) Baso % (Auto) Neut # (Auto) Lymph # (Auto) Towns # (Auto) Eos # (Auto) Baso # (Auto) Immature Gran # (Auto) PT INR APTT PTT Ratio Sodium Potassium Chloride Carbon Dioxide Anion Gap BUN Creatinine Est Cr Clr Drug Dosing Est GFR ( Amer) Est GFR (Non-Af Amer) BUN/Creatinine Ratio Glucose Calcium Magnesium Total Bilirubin AST ALT Alkaline Phosphatase Troponin I < 0.015 Total Protein Albumin Globulin Albumin/Globulin Ratio Lipase Diagnostic Findings Telemetry personally reviewed: Sinus rhythm with occasional PVCs. No arrhythmia. ECG personally reviewed: ECG 09/04/2020: Sinus rhythm 68 beats per minute. Inferior infarct. Medications Administered Current Inpatient Medications Aspirin (Aspirin 81 Mg Ectab) 81 mg PO QAM [facility] Stop: 10/05/20 08:59 Last Admin: 09/05/20 13:27 Dose: 81 mg Documented by: Atorvastatin Calcium (Atorvastatin 40 Mg Tab) 40 mg PO HS [facility] Stop: 10/05/20 20:59 Cefuroxime Axetil (Cefuroxime Axetil 500 Mg Tab) 500 mg PO BID [facility] Stop: 09/14/20 21:01 Last Admin: 09/05/20 13:29 Dose: 500 mg Documented by: Lisinopril (Lisinopril 5 Mg Tab) 5 mg PO QAM [facility] Stop: 10/05/20 08:59 Last Admin: 09/05/20 13:32 Dose: 5 mg Documented by: Melatonin (Melatonin 3 Mg Tab) 9 mg PO HS [facility] Stop: 10/05/20 20:59 Metoprolol Tartrate (Metoprolol Tartrate 25 Mg Tab) 12.5 mg PO BID [facility] Stop: 10/05/20 08:59 Last Admin: 09/05/20 13:28 Dose: 12.5 mg Documented by: Morphine Sulfate (Morphine Sulfate 2 Mg/Ml Carp) 2 mg IV Q2H PRN PRN Reason: Pain Stop: 09/19/20 00:31 Nitroglycerin (Nitroglycerin 2% Ointment 30gm Tube) 1 inch EXT Q6H [facility] Stop: 10/05/20 00:31 Last Admin: 09/05/20 12:11 Dose: 1 inch Documented by: Ondansetron HCl (Ondansetron Inj 2 Mg/Ml 2 Ml Vial) 4 mg IV Q6H PRN PRN Reason: Nausea Stop: 10/05/20 01:21 Ticagrelor (Ticagrelor 90 Mg Tab) 90 mg PO BID [facility] Stop: 10/05/20 08:59 Last Admin: 09/05/20 13:27 Dose: 90 mg Documented by: PG Care Time/CCT Total # of Minutes Spent Total Time Spent with Patient: Total time spent is greater than 50% in coordination of care (as documented) at patient's floor/unit and/or counseling patient: Coding Level of Care Code 27317 Office/OBS Consult Lvl 4 Diagnoses Chest pain R07.9 CAD (coronary artery disease) I25.10 History of heart artery stent Z95.5 Dyslipidemia E78.5
[2020-09-05] MEDS: TICAGRELOR 90 MG TAB PO SCH ×2 (08:55→13:27)
[2020-09-05] MEDS: lisinopril 5 MG TAB PO SCH ×2 (08:55→13:32)
[2020-09-05] MEDS: ASPIRIN 81 MG ECTAB PO SCH ×2 (08:55→13:27)
[2020-09-05] MEDS: cefUROXime axetil 500 MG TAB PO SCH ×2 (08:55→13:29)
[2020-09-05] MEDS: METOPROLOL TARTRATE 25 MG TAB PO SCH ×2 (08:55→13:28)
[2020-09-05] MEDS ORDERED: NITROGLYCERIN SL 0.4 MG/TAB TAB ONE (13:52)
--- NOTE | 2020-09-05 18:05 | XCELERA ---
[id number]
--- NOTE | 2020-09-05 18:37 | Discharge Summary ---
Date of Service September 05, 2020 Admission HPI Per Admitting Provider Mr. Sanabria is a 60yo gentleman with a PMhx significant for CAD with NSTEMI in Jun 2020 (s/p stent placement in his RCA and LAD), sleep apnea s/p UPPP surgery, rosecea and ?Lyme disease who was admitted for ACS rule-out. Pt states that he fist developed chest pain about 4:30pm on his way back from a wine tour in [place] with his . Stated he had gotten out of the car to pump gas and use the bathroom at [facility] and was walking back to car when he suddenly developed the chest pain. Describes it as the chest pain he had when he had his NSTEMI, nonradiating, sharp and NOT associated with N/V, diaphoresis or SOB. States he was on his ellipitical this AM working out, but he had been doing that throughout his cardiac rehab that he just finished a week ago. Of note, he is presenting on the 8th week anniversary of his NSTEMI. States he took 3 nitro pills when his chest pain developed over the course of 15 minutes and had some relief. They drove home before presenting and he noted that his BP was systolic 120s. Of note pt states that he presented in May similarly before he had his NSTEMI in June where he had the similar chest pain but did not bump a trop or show ischemic changes on his EKG. States he wants to be extra careful this time around. He has never smoked cigarettes and states he exercises regularly. He has been following a mediterranean diet though he states he "cheats" occasionally on the weekends. His father had triple bypass surgery at 81 and his mom also had an WI in her later years. He was on a wine tour today so had more alcohol than usual but states he averages to 2 drinks per week. No recreational drug use. 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 states he was writing checks earlier today as well but they deny financial stressors. Principal Diagnosis UGI related chest pain Discharge Exam gen aaox3 pleasant nad heent nc at mmm breathing unlabored no accessory muscles good effort skin no rashes no pallor or icterus neuro no focal deficits Discharge Data Allergies Allergy/AdvReac Type Severity Reaction Status Date / Time No Known Drug Allergies Allergy Unknown NKDA Verified 09/04/20 23:09 pollen extracts Allergy Unknown HAYFEVER Verified 09/04/20 23:09 SYMPTOMS Consultations 09/04/20 22:42 ED Decision to Admit Stat 09/05/20 00:32 Consult Cardiology Routine Hospital Course (1) Chest pain: recent cath and stenting - no WI/no stemi and residual CAD appearing fairly mild - cardiology consulted - stress echo negative AND went 10mins on treadmill - all quite reassuring. pt did note that he ate a lot more than he has in a while, had some wine, and then was sedentary in car - all pleading heavily towards UGI source of pain stable for home Total Time Total Time Spent Total Time Spent (In Minutes): >30 Discharge Plan Discharge Items Patient Disposition: Home - Self-Care Reason For Visit: CHEST PAIN Discharge Diagnosis: chest pain - upper GI distress Condition on Discharge: Good Activity: Resume your previous activity Non-emergency contact: Primary Care Provider and Wash Tank Tender Call non-emergency contact if: you have any medication questions and your symptoms worsen Follow-up/Referrals: Keith Rivera MD [Primary Care Provider] - Diet: Other - See Diet Comment Diet Comment: dov Saleh Attending Provider Instructions: chest pain -as we discussed, with your stress test being negative that alone carries a lot of reassurance of the pain not being cardiac; on top of that, having gone 10 minutes on the treadmill - that level of exertion alone is extremely reassuring. on top of all that - with your coronaries having had the significant blockages opened up, your chest pain, if heart related, almost would have had to be "all or none" - and it was none (ie no heart attack) it's all extremely reassuring that this was not heart related -conversely, given the change in how you eat normally compared to yesterday, and the fact that upper GI distress really mirrors what we often see people feel with coronary related pain, it's highly probable that you were feeling stomac h/esophagus distress (further, since nitro relaxes smooth muscle, it's pretty common to see upper GI distress improve on nitroglycerin) Pending Studies at Discharge: No Stand-Alone Forms: My [employer], Smoking Cessation Medications and DC Order Prescriptions: Continued atorvastatin 40 mg Tablet 40 mg PO HS 30 Days Qty: 30 RF: 3 Brilinta 90 mg Tablet 90 mg PO BID 30 Days Qty: 60 RF: 3 lisinopril [Zestril] 5 mg Tablet 5 mg PO QAM 30 Days Qty: 30 RF: 3 metoprolol tartrate 25 mg Tablet 12.5 mg PO BID Qty: 30 RF: 3 nitroglycerin [Nitrostat] 0.4 mg Tablet, Sublingual 0.4 mg sublingual UD PRN (Reason: chest pain) 30 Days Qty: 60 RF: 1 aspirin 81 mg Tablet,Delayed Release (Dr/Ec) 81 mg PO QAM 30 Days Qty: 30 RF: 3 cefuroxime axetil 500 mg tablet 500 mg PO BID RF: 0 ascorbic acid (vitamin C) [Vitamin C] 500 mg Tablet,Chewable 1,500 mg PO DAILY RF: 0 melatonin 10 mg Tablet 10 mg PO HS RF: 0 Adult One Daily Gummies 200 mcg tablet,chewable 1 tab PO HS RF: 0 Discharge Orders: Discharge Order (Routine); Ordered 09/05/20 Ordered By: Romaine Bell Admission Data Admit Date/Time: 09/04/20 23:32 Attending Provider: Romaine Bell Admit Provider: Danita Avina Primary Care Provider: Keith Rivera Other Providers: Moni Urrutia ; Jose Benavides ; Jem Hunter Other Interventions: Discharge Summary Assessment (RN) Last Done: 09/05/20 16:21 Coding Level of Care Code 83383 OBS Care - Discharge Diagnoses Chest pain R07.9
--- NOTE | 2020-09-05 20:46 | Electrocardiogram Report ---
Test Reason : Blood Pressure : / mmHG Vent. Rate : 068 BPM Atrial Rate : 068 BPM P-R Int : 188 ms QRS Dur : 102 ms QT Int : 406 ms P-R-T Axes : 068 041 -06 degrees QTc Int : 431 ms Normal sinus rhythm Inferior infarct , age undetermined Abnormal ECG When compared with ECG of 13-JUL-2020 07:02, Inferior infarct is now Present Confirmed by Jose Benavides ([id number]) on 09/05/2020 8:46:30 PM Referred By: REFERRED SELF Confirmed By:Jose Benavides
[2020-09-05] MEDS ORDERED: MELATONIN 3 MG TAB PO SCH (21:00)
[2020-09-05] MEDS ORDERED: ATORVASTATIN 40 MG TAB PO SCH (21:00)
== END 2020-09-05 16:50 | disposition home or self-care (01) ==
LOC: 2N 21:53 → ED 21:53 → SUATTDRO 23:32 → 2N 09-05 00:15